=== PATIENT | male | born 1955 | race Caucasian/White ===

== ENCOUNTER 2017-06-17 11:36 | Emergency (ER) | payer MEDICARE, SELFPAY ==
[~2017-06-17 11:36] MED LIST: ISOVUE-370 76%-LOCM 1 ML ONE
--- NOTE | 2017-06-17 12:20 | RAD ---
CHEST ONE VIEW: Comparison: 10-30-13 History: Chest pain, shortness of breath. Patient underwent dialysis yesterday. FINDINGS: Normal cardiac silhouette. The pulmonary vessels and hilum are normal. Blunting of the left costophre clarice angle, unchanged. Right costophrenic angle is clear. Chronic change in the lung parenchyma. No ma sses or consolidation. No pneumothorax or osseous abnormality. IMPRESSION: Chronic changes. No acute cardiopulmonary process. POS: [facility]
[2017-06-17 12:28] LABS: #Basophils 0.1 thou/uL (0.0-0.2); #Eosinphils 0.3 thou/uL (0.0-0.7); #Monocytes 0.4 thou/uL (0.11-0.59); %Basophils 0.9 % (0.0-1.0); %Eosinophils 4.9 % (0.0-10.0); %Lymphocytes 35.1 % (21.0-51.0); %Monocytes 7.6 % (0.0-10.0); %Neutrophils 51.6 % (42.0-75.0); Band 3 % (5-11); Eosinophils 1 % (0-10); Hemoglobin 16.7 g/dL (14.0-18.0); Lymphocytes 41 % (21-51); MDiff Complete? YES; Macrocytosis SLIGHT = 6-15 cells (100X) (0-5/hpf); Mean Corpuscular HGB CONC 33.7 g/dL (32.0-36.0); Mean Corpuscular Hemoglobin 37.6 pg (27.0-31.0); Mean Platelet Volume 7.9 fL (7.4-10.4); Monocytes 9 % (0-10); Neutrophil 45 % (42-75); PLT Morphology Comment Appears Decreased; Platelet Count 72 thou/uL (130-400); RBC Distribution Width 12.1 % (11.5-14.5); Red Blood Cell (RBC) Count 4.43 mill/uL (4.70-6.10); White Blood Cell (WBC) Count 5.7 thou/uL (4.8-10.8)
[2017-06-17 12:39] LABS: ALT (SGPT) 30 U/L (8-55); AST (SGOT) 118 U/L (5-34); Albumin 3.7 g/dL (3.4-4.8); Alkaline Phosphatase 92 U/L (40-150); Anion Gap 17 mmol/L (10-20); BUN (Urea Nitrogen) 6 mg/dL (8.4-25.7); Bilirubin, Total 1.7 mg/dL (0.2-1.2); CK (CPK) 671 U/L (30-200); Calc. Creatinine Clearance 0 mL/min (70-130); Calcium 8.9 mg/dL (7.8-10.44); Carbon Dioxide 22 mmol/L (23-31); Chloride 108 mmol/L (98-107); Estimated GFR-MDRD Greater than 90; Globulin 4.4 g/dL (2.4-3.5); Glucose 121 mg/dL (80-115); Lipase 41 U/L (8-78); Magnesium 2.1 mg/dL (1.6-2.6); Protein, Total 8.1 g/dL (5.8-8.1); Sodium 143 mmol/L (136-145)
[2017-06-17] MEDS ORDERED: Pantoprazole 40 MG VIAL ONE (13:29)
[2017-06-17] MEDS ORDERED: Ondansetron HCl/PF 4 MG/2 ML Vial ONE (13:29)
--- NOTE | 2017-06-17 14:20 | CT ---
CT ANGIOGRAM THORAX WITH IV CONTRAST AND 3D RECONSTRUCTIONS: Date: 06-17-17 History: Shortness of breath and chest pain for the past month. FINDINGS: The lungs are clear bilaterally aside from minimal bibasilar atelectasis versus scarring. Thoracic ao rta is normal in caliber without evidence of an aortic dissection. There is suboptimal timing of the contrast bullous limiting the degree of opacification of the pulmonary arteries. While no large filli ng defect is seen within the central or proximal segmental pulmonary arteries, filling defects in the more distal segmental and subsegmental pulmonary arteries are difficult to entirely exclude. Mediastinal structures have a normal CT appearance. There is diminished attenuation of the liver related to diffuse fatty infiltration. There is a rounde d focal areas of enhancement seen in the lateral segment left hepatic lobe, also seen on prior study in 2012 and unchanged. This probably represents a small vascular type malformation given stability ov er this period of time. IMPRESSION: 1. Suboptimal calcification of pulmonary arteries due to timing of the contrast bolus, and while no l arge filling defect is seen in the central or segmental pulmonary arteries, smaller filling defects w ithin the distal subsegmental pulmonary arteries or involving the subsegmental pulmonary arteries wou ld be difficult to entirely exclude. 2. Thoracic aorta is normal in caliber without evidence of an aortic dissection. 3. Diffuse fatty infiltration of the liver. POS: [facility]
== END 2017-06-17 14:14 | disposition home or self-care (01) ==
LOC: ERS 11:36
DX: R07.9 Chest pain, unspecified (principal); R19.7 Diarrhea, unspecified; R11.2 Nausea with vomiting, unspecified; I10 Essential (primary) hypertension; G89.29 Other chronic pain; M19.90 Unspecified osteoarthritis, unspecified site; F20.9 Schizophrenia, unspecified; F41.9 Anxiety disorder, unspecified; F32.9 Major depressive disorder, single episode, unspecified
CPT/HCPCS: 71045; 71275; 80053; 82274; 82550; 83630; 83690; 83735; 83880; 85025; 85379; 87045; 87046; 87324; 87328; 87329; 87449; 87899; 93005; 96374; 96375; C9113; J2405

== ENCOUNTER 2017-07-14 13:11 | Emergency (ER) | payer MEDICARE, SELFPAY ==
[2017-07-14 14:05] LABS: #Basophils 0.1 thou/uL (0.0-0.2); #Eosinphils 0.2 thou/uL (0.0-0.7); #Lymphocytes 1.6 thou/uL (1.20-3.40); #Monocytes 0.5 thou/uL (0.11-0.59); #Neutrophils 3.3 thou/uL (1.40-6.50); %Basophils 1.3 % (0.0-1.0); %Eosinophils 2.8 % (0.0-10.0); %Lymphocytes 28.1 % (21.0-51.0); %Monocytes 9.5 % (0.0-10.0); %Neutrophils 58.4 % (42.0-75.0); Hemoglobin 15.4 g/dL (14.0-18.0); Mean Corpuscular Hemoglobin 36.2 pg (27.0-31.0); Mean Platelet Volume 8.3 fL (7.4-10.4); Platelet Count 72 thou/uL (130-400); RBC Distribution Width 12.5 % (11.5-14.5); Red Blood Cell (RBC) Count 4.25 mill/uL (4.70-6.10); White Blood Cell (WBC) Count 5.6 thou/uL (4.8-10.8)
--- NOTE | 2017-07-14 14:20 | RAD ---
2 VIEWS CHEST: Date: 07/14/17 COMPARISON: 06/17/17. HISTORY: Cough with shortness of breath. FINDINGS: There is a questionable new hazy area of increased density in the right lung base versus artifact. Th ere is asymmetric linear density in the medial left base and the left costophrenic angle with bluntin g of left costophrenic angle suggesting small volume left pleural fluid. No lobar consolidation or al veolar edema is seen. IMPRESSION: 1. Increased linear density noted in the left lung base which could signify infiltrate or volume los s with possible small volume associated pleural fluid. 2. Questionable hazy new density in the right lung base. Recommend follow-up PA and lateral imaging following treatment to document resolution. POS: [facility]
[2017-07-14 14:21] LABS: ALT (SGPT) 18 U/L (8-55); AST (SGOT) 102 U/L (5-34); Albumin 3.4 g/dL (3.4-4.8); Alkaline Phosphatase 114 U/L (40-150); Anion Gap 12 mmol/L (10-20); BUN (Urea Nitrogen) 7 mg/dL (8.4-25.7); Bilirubin, Total 1.6 mg/dL (0.2-1.2); Calc. Creatinine Clearance 0 mL/min (70-130); Calcium 8.6 mg/dL (7.8-10.44); Carbon Dioxide 24 mmol/L (23-31); Chloride 107 mmol/L (98-107); Estimated GFR-MDRD Greater than 90; Globulin 4.5 g/dL (2.4-3.5); Glucose 123 mg/dL (80-115); Potassium 3.9 mmol/L (3.5-5.1); Protein, Total 7.9 g/dL (5.8-8.1); Sodium 139 mmol/L (136-145)
[2017-07-14 15:53] LABS: Acetaminophen Less than 6.0 mcg/mL (10.0-30.0); Alcohol 270 mg/dL (Less than 10); Salicylate Less than 8.0 mg/dL (15.0-30.0)
[2017-07-14 15:58] LABS: CKMB 2.7 ng/mL (0-6.6); Troponin I 0.019 ng/mL (< 0.028)
[2017-07-14] MEDS ORDERED: Piperacillin/Tazobactam 2.25 GM in Sodium Chloride 0.9% 100 ML IVPB SCH (16:15)
[2017-07-14] MEDS ORDERED: clonazePAM 1 MG TAB ONE (17:07)
[2017-07-14] MEDS ORDERED: Azithromycin 250 MG TAB ONE (17:23)
--- NOTE | 2017-07-14 21:33 | PDOC.EVN ---
Attending Addendum - Attending Addendum I personally evaluated the patient and discussed the management with Dr. Morejon I agree with the History, Examination, Assessment and Plan documented above with any addition or exceptions noted below. 61 yo WM seen in ER with c/o I need my clonazepam pills. Patient endorses recent Viral illness and chest pain. Patient brought to ER via PV by friend in ER notable blood alcohol level 270. CXR with questionable patchy infiltrate right and left lung bases. PMHX patient followed by [facility] on RX klonopin,ambien and pristiq per patient. Chronic LBP and history of hypertension . Exam T 98.8 HR 100 BP 140/87 RR 18 02 Sat 95% RA alert appear intoxicated. Head AT/NC neck supple Lungs mild wheezes noted Heart NSR abdomen proturburent and tender to epigatrium. EKG no acute changes noted Lab WBC 5,600 Hgb 15.4 HCT 46.5 PLTS 72, 000 MCV 110 ETOH 270 Bili 1.6 AST 102 CK 498 troponin 0.019 Assessment acute alcohol intoxication,suspect chronic alcohol abuse with macrocytosis, epigastric abdominal and chest pain concern pancreatitis questionale basilar infiltrate, lab concern chronic liver disease( thrombocytopenia, elevated bilirubin and AST)will need further evaluation. IV hydration observation further evaluation check lipase initial EKG and troponin negative.
--- NOTE | 2017-07-15 01:21 | HP-2 ---
CODE STATUS: The patient is FULL CODE as he is acutely intoxicated and not able to make any medical decisions at this time. PRIMARY CARE PHYSICIAN: [facility] call. The patient does not have a primary care physician. ATTENDING: Otf Meng MD RESIDENT: Winsome Diaz D.O. CHIEF COMPLAINT: The patient presents with a chief complaint of feeling unwell and requesting clonazepam for his anxiety. HISTORY OF PRESENT ILLNESS: This is a 61-year-old male with past medical history of alcohol abuse, polysubstance abuse, chronic thrombocytopenia and chronic low back pain previously on chronic opiates that presents with a generalized unwell feeling. He also stated that he has anxiety and is in need of his clonazepam at this moment. During the interview, he asked for it on several occasions. The patient is an unreliable historian due to the fact that he is acutely intoxicated. He claims that he has not had alcohol within the last year; however, his alcohol level was greater than 270. He also denied any tobacco abuse. The patient did endorse past history of polysubstance abuse, but denied any drug use at this time. The patient did endorse chest pain over the past couple of days, which is worse with taking a deep breath. He does state that it occasionally hurts to touch as well. He also endorses some mild shortness of breath. He was given azithromycin and Zosyn in the emergency department for presumed aspiration pneumonia. PAST MEDICAL HISTORY: 1. The patient had a stress test done in 2013, which was negative. 2. Chronic low back pain on chronic opiates. 3. Hypertension. 4. Depression. 5. Anxiety. 6. History of chronic kidney disease stage 2. 7. Polysubstance abuse. 8. History of elevated liver enzymes. 9. Chronic thrombocytopenia. PAST SURGICAL HISTORY: None. ALLERGIES: No known drug allergies. MEDICATIONS: We are unable to verify patient's medications at this time. He did report that he was on Ambien 2 mg at bedtime; however, this does not come in 2 mg, so is uncertain whether or not he is on the 5 mg at night. Additionally, he stated that he was on clonazepam 4 mg q.i.d. and Pristiq 100 mg daily. These medications need to be verified through [facility], which is currently closed at this time. We will update the medication list as we get this information. FAMILY HISTORY: Noncontributory. SOCIAL HISTORY: The patient denies tobacco or alcohol use. He does endorse past history of drug use, but denies any drug use at this time. The patient does state that he sees [facility]. REVIEW OF SYSTEMS: A 12-point review of systems was performed and all were negative except as listed in HPI and as indicated below. The patient does endorse some orthopnea and epigastric abdominal pain. He complained of low back pain and generalized weakness. He was very adamant about being anxious and having depression. He did state that when he gets anxious his depression gets worse. Of note, this review of systems is also not 100% reliable as patient is acutely intoxicated. PHYSICAL EXAMINATION: VITAL SIGNS: Blood pressure 140/87, pulse 100, respiratory rate 18, T-max 98.8 , pulse ox 95% on room air. Current weight 108.86 kilograms. GENERAL: Alert, oriented x3, no acute distress. Well-developed, well-nourished , obese patient is acutely intoxicated and his history is not reliable. It is difficult to ascertain when he is telling the truth. EYES: Pupils equally round and reactive to light and accommodation. Extraocular muscles intact. Conjunctivae are erythematous. ENT: Tympanic membranes pearly reeves without bulging or erythema. There is minimal brown cerumen, nasal mucosa within normal limits, oropharynx within normal limits. NECK: Supple, no lymphadenopathy or thyromegaly. CARDIOVASCULAR: Regular rate and rhythm. No murmur, no gallops. Radial pulses 2+, pedal pulses 2+. RESPIRATORY: Normal effort. There is some expiratory wheezing, worse in the left upper lobe. No retractions noted on exam. SKIN: Warm and dry. No cyanosis. No lesions. ABDOMEN: Soft, mildly tender to palpation in the epigastric region. There is some evident distention. EXTREMITIES: No clubbing or cyanosis. No edema. MUSCULOSKELETAL: Structure within normal limit. Tone within normal limit. Muscle strength 5/5. NEUROLOGIC: No focal deficits. PSYCHIATRIC: The patient appears acutely intoxicated. LABORATORY DATA: 1. CBC reveals white blood cell count 5.6, hemoglobin 15.4, hematocrit 46.5, platelets 77, and MCV of 110. 2. CMP reveals sodium 139, potassium 3.9, chloride 107, bicarbonate 24, BUN 7, creatinine 0.079, glucose 123, calcium 8.6, protein 7.9, albumin 3.4, alkaline phosphatase 114, AST 102, ALT 18, bilirubin 1.6. 3. CK 498. 4. CK-MB 27, troponin 0.019. 5. Acetaminophen and salicylate acid levels are negative. 6. BNP 30.7. 7. Alcohol level 270. 8. Chest x-ray showed increased linear density noted in the left lung base, which could signify infiltrate or volume loss with possible small volume associated pleural effusion. Additionally, there is a questionable hazy, increased density in the right lung base at this time. ASSESSMENT AND PLAN: This is a 61-year-old male with past medical history of polysubstance abuse who presents with generalized malaise and chest pain. 1. Multifocal pneumonia, likely secondary to aspiration from acute alcohol intoxication. The patient was admitted to the medical unit. He is being treated with Zosyn for anaerobic coverage due to aspiration. We will start patient on DuoNebs p.r.n. for wheezing and shortness of breath. The patient did have recent flu; however, this is not documented anywhere and his history is unreliable at this time. Thus, we will monitor the patient for improvement in symptoms and consider adding vancomycin if symptoms are worsening. Procalcitonin is pending at this time. The patient will have continuous oxygen monitoring and we will increase supplement with O2 if sats are below 92%. 2. Acute alcohol intoxication. Alcohol level was 270. We will start patient on ASE protocol and GIULIA medications with the exception of Valium. Ammonia level is pending at this time. 3. Epigastric pain. This may be secondary to gastroesophageal reflux disease. The patient was started on Protonix. Due to the patient's acute alcohol intoxication, this may also be secondary to pancreatitis. The lipase was ordered. The patient's bilirubin was slightly elevated at 1.6. A direct bilirubin is pending at this time. Of note, AST and ALT are within normal limits. 4. Chronic thrombocytopenia. Platelets are 77. We will hold Lovenox and repeat a.m. CBC to ensure that platelets are staying stable. 5. Anxiety until able to verify home medications. We will only start patient on 0.5 mg of clonazepam b.i.d. 6. Polysubstance abuse. The UDS is pending at this time. 7. Deep venous thrombosis prophylaxis, sequential compression devices. 8. Gastrointestinal prophylaxis, Protonix. DISPOSITION AND LENGTH OF HOSPITAL STAY: 2 days. Symptomatic medications will be provided. History and physical exam as well as management discussed with Dr. Meng. SELIN
== END 2017-07-14 19:24 | disposition left against medical advice (07) ==
LOC: ERS 13:11
DX: J18.9 Pneumonia, unspecified organism (principal); F10.129 Alcohol abuse with intoxication, unspecified; F31.9 Bipolar disorder, unspecified; F20.9 Schizophrenia, unspecified; F41.9 Anxiety disorder, unspecified; I10 Essential (primary) hypertension; Z79.899 Other long term (current) drug therapy
CPT/HCPCS: 36415; 71046; 80053; 80307; 82550; 82553; 83880; 84484; 85025; 87040; 93005; 96365; J2543; J7050

== ENCOUNTER 2017-08-21 13:56 | Inpatient (IN) | payer MEDICARE ==
[2017-08-21 14:43] LABS: #Basophils 0.1 thou/uL (0.0-0.2); #Eosinphils 0.1 thou/uL (0.0-0.7); #Lymphocytes 1.3 thou/uL (1.20-3.40); #Monocytes 0.3 thou/uL (0.11-0.59); #Neutrophils 1.7 thou/uL (1.40-6.50); %Basophils 2.3 % (0.0-1.0); %Eosinophils 3.8 % (0.0-10.0); %Lymphocytes 36.7 % (21.0-51.0); %Monocytes 7.7 % (0.0-10.0); %Neutrophils 49.4 % (42.0-75.0); Hemoglobin 11.4 g/dL (14.0-18.0); Mean Corpuscular HGB CONC 31.1 g/dL (32.0-36.0); Mean Corpuscular Hemoglobin 30.9 pg (27.0-31.0); Mean Corpuscular Volume 99.4 fl (80.0-94.0); Mean Platelet Volume 7.7 fL (7.4-10.4); Platelet Count 74 thou/uL (130-400); RBC Distribution Width 15.2 % (11.5-14.5); White Blood Cell (WBC) Count 3.5 thou/uL (4.8-10.8)
[2017-08-21 14:49] LABS: INR-International Normal Ratio 1.8; PTT 43.9 SEC (22.9-36.1); Prothrombin Time 21.2 SEC (12.0-14.7)
[2017-08-21 15:03] LABS: ALT (SGPT) 26 U/L (8-55); AST (SGOT) 103 U/L (5-34); Albumin 2.9 g/dL (3.4-4.8); Alkaline Phosphatase 76 U/L (40-150); Anion Gap 13 mmol/L (10-20); BUN (Urea Nitrogen) 9 mg/dL (8.4-25.7); Bilirubin, Total 2.2 mg/dL (0.2-1.2); CK (CPK) 373 U/L (30-200); Calc. Creatinine Clearance 0 mL/min (70-130); Calcium 7.9 mg/dL (7.8-10.44); Carbon Dioxide 23 mmol/L (23-31); Chloride 108 mmol/L (98-107); Estimated GFR-MDRD Greater than 90; Globulin 4.1 g/dL (2.4-3.5); Glucose 114 mg/dL (80-115); Lipase 32 U/L (8-78); Potassium 4.4 mmol/L (3.5-5.1); Sodium 140 mmol/L (136-145)
[2017-08-21 15:07] LABS: CKMB 2.5 ng/mL (0-6.6); Troponin I Less than 0.010 ng/mL (< 0.028)
[2017-08-21 15:11] LABS: Acetaminophen Less than 6.0 mcg/mL (10.0-30.0); Alcohol 210 mg/dL (Less than 10); Salicylate Less than 8.0 mg/dL (15.0-30.0)
--- NOTE | 2017-08-21 15:14 | RAD ---
PORTABLE UPRIGHT CHEST: Date: 08/21/17 PROVIDED CLINICAL HISTORY: Dyspnea. FINDINGS: Comparison with 07/14/17. Cardiac silhouette is unchanged in appearance. Linear and parenchymal opacities suggesting scarring o r volume loss involve each parahilar region. Lungs appear otherwise clear. No pleural fluid or pneumo thorax apparent. Stable blunting of left costophrenic angle. IMPRESSION: No evidence for an acute cardiopulmonary process. POS: [facility]
[2017-08-21 15:50] LABS: HBCM Index 0.18 S/CO (0-0.79); HBSAg Index 0.22 S/CO (0-0.99); Hep A IgM AB Non-Reactive (NonReactive); Hep A IgM S/CO 0.12 S/CO (0-0.79); Hep B Surf Ag Non-Reactive S/CO (NonReactive); Hepatitis B Core IGM Abs Non-Reactive (NonReactive)
[2017-08-21] MEDS ORDERED: Ondansetron ODT 4 MG TAB PO PRN (16:49)
[2017-08-21] MEDS ORDERED: Diazepam 5 MG TAB PO PRN (16:52)
[2017-08-21 16:54] LABS: Hep C IgG Ab Reflex HepC Qnt (NonReactive); Hep C Index 1.46 S/CO (0-0.79)
[2017-08-21] MEDS ORDERED: Lorazepam 2 MG/ML VIAL SLOW IVP PRN (16:59)
[2017-08-21] MEDS ORDERED: Furosemide 40 MG/4 ML VIAL SLOW IVP SCH (17:00)
[2017-08-21] MEDS ORDERED: Diazepam 5 MG TAB PO SCH (17:00)
[2017-08-21] MEDS ORDERED: Thiamine HCl 200 MG/2 ML VIAL IM SCH (17:00)
--- NOTE | 2017-08-21 17:17 | PDOC.FPRHP ---
- History of Present Illness Chief Complaint: ascites History of Present Illness: Patient comes in with reported 2 wks of worsening ascites. The patient's breath smells of alcohol and he is a poor historian. He states he feels pressure in his belly. He cannot rank the pain out of ten. He states the pain is diffuse and radiates up to his chest. He is not in distress. He states he has had increasing shortness of breath as his belly has gotten bigger. He states he only drinks 2-3 times a week, a few bloody tony. He states the last time he drank was last night or the night before but he does not remember. - Allergies/Adverse Reactions Allergies Allergy/AdvReac Type Severity Reaction Status Date / Time No Known Drug Allergies Allergy Verified 10/30/13 20:39 - Home Medications Medication Instructions Recorded Confirmed Type Desvenlafaxine Succinate [Pristiq] 100 mg PO DAILY 01/11/14 08/21/17 History Zolpidem Tartrate [Ambien] 10 mg PO HS 01/11/14 08/21/17 History clonazePAM [Klonopin] 2 mg PO BID 08/21/17 08/21/17 History - History PMHx: anxiety, depression PSHx: patient denies surgeries FHx:non-contributory Social: states he drinks only 2-3 nights a week, denies tobacco, says he used cocaine when he was younger - Review of Systems ROS unobtainable: due to mental status (patient is poor historian) General: denies: fever/chills, weight/appetite/sleep changes Eyes: denies: eye pain, vision changes ENT: denies: nasal congestion, rhinorrhea Respiratory: reports: shortness of breath. denies: cough Cardiovascular: reports: edema. denies: chest pain, palpitation, orthopnea Gastrointestinal: denies: nausea, vomiting, diarrhea Genitourinary: denies: dysuria, polyuria Skin: denies: rashes, itching Musculoskeletal: denies: pain, swelling Neurological: denies: numbness, weakness Psychological: reports: anxiety, depression - Vital signs BP: [122/87] HR: [92] RR: [20] Tmax: [98.5] Pox: [92]% on [4L (prongs out of nose...)] - Physical Exam Constitutional: NAD, awake, alert and oriented HEENT: normocephalic and atraumatic, PERRLA, MMM Neck: supple, FROM Heart: RRR, normal S1/S2 Lungs: good air movement -Lungs: mild crackles at the bases bilaterally -Abdomen: markedly distended, fluid shift, moderately tender to palpation Musculoskeletal: normal structure, ROM grossly normal Neurological: no focal deficit, normal sensation -Neurological: mild tremors Skin: no rash/lesions, capillary refill <2 seconds -Heme/Lymphatic: small bruises diffusely Psychiatric: normal mood and affect, good judgment and insight FMR H&P: Results - Labs Result Diagrams: 08/21/17 14:38 08/21/17 14:38 Lab results: WBC 3.5 thou/uL (4.8-10.8) L 08/21/17 14:38 Hgb 11.4 g/dL (14.0-18.0) L 08/21/17 14:38 Hct 36.8 % (42.0-52.0) L 08/21/17 14:38 MCV 99.4 fl (80.0-94.0) H 08/21/17 14:38 Plt Count 74 thou/uL (130-400) L 08/21/17 14:38 Neutrophils % 49.4 % (42.0-75.0) 08/21/17 14:38 Sodium 140 mmol/L (136-145) 08/21/17 14:38 Potassium 4.4 mmol/L (3.5-5.1) 08/21/17 14:38 Chloride 108 mmol/L (98-107) H 08/21/17 14:38 Carbon Dioxide 23 mmol/L (23-31) 08/21/17 14:38 BUN 9 mg/dL (8.4-25.7) 08/21/17 14:38 Creatinine 0.84 mg/dL (0.6-1.3) 08/21/17 14:38 Glucose 114 mg/dL (80-115) 08/21/17 14:38 Calcium 7.9 mg/dL (7.8-10.44) 08/21/17 14:38 Total Bilirubin 2.2 mg/dL (0.2-1.2) H 08/21/17 14:38 AST 103 U/L (5-34) H 08/21/17 14:38 ALT 26 U/L (8-55) 08/21/17 14:38 Alkaline Phosphatase 76 U/L (40-150) 08/21/17 14:38 Ammonia 44 umol/L (18-72) 08/21/17 14:38 Creatine Kinase 373 U/L (30-200) H 08/21/17 14:38 CK-MB (CK-2) 2.5 ng/mL (0-6.6) 08/21/17 14:19 B-Natriuretic Peptide 68.5 pg/mL (0-100) 08/21/17 14:38 Serum Total Protein 7.0 g/dL (5.8-8.1) 08/21/17 14:38 Albumin 2.9 g/dL (3.4-4.8) L 08/21/17 14:38 Lipase 32 U/L (8-78) 08/21/17 14:38 FMR H&P: A/P - Problem List (1) Cirrhosis Current Visit: Yes Status: Acute Code(s): K74.60 - UNSPECIFIED CIRRHOSIS OF LIVER (2) Alcohol abuse Current Visit: Yes Status: Acute Code(s): F10.10 - ALCOHOL ABUSE, UNCOMPLICATED (3) Ascites Current Visit: Yes Status: Acute Code(s): R18.8 - OTHER ASCITES (4) Pleural effusion associated with hepatic disorder Current Visit: Yes Status: Acute Code(s): K76.9 - LIVER DISEASE, UNSPECIFIED ; J91.8 - PLEURAL EFFUSION IN OTHER CONDITIONS CLASSIFIED ELSEWHERE - Plan # Ascites likely 2/2 to cirrhosis - bili 2.2, alb 2.9, INR 1.8, plt 77 - salicylate, tylenol negative - hepatitis panel pending - Abd US pending - plan for paracentesis - MELD 16, CPS 9 # Alcohol Abuse - alcohol level 210 - patient states last drink 1-2 days ago - ASE, Ativan b/c of cirrhosis - thiamine/folate, mag # Pleural effusion - noted on CXR - one time Lasix 40IV # Hx of drug abuse - UDS # Hx of Depression - home meds # PPx - SCDs, no pharmacologic 2/2 cirrhosis # Code - patient states DNR in ED - Will make patient full code 2/2 lack of documentation, intoxicated status FMR H&P: Upper Level - Pertinent history 61yo CM with no known pmhx aside from polysubstance & ETOH abuse presents to ED with SOB due to increasing abd distention over the last few weeks. He is a very poor historian and smells of ETOH during exam. He states he drinks on average twice per week with 2 bloody tony upon each occurrance. Thinks his last drink was 1-2 days ago, but is unsure. When asked about other symptoms, pt becomes tearful regarding his 2 kittens being home alone. - Pertinent findings PE- poor historian with poor hygiene. NAD, A&O x2. no resp distress but exp wheezes and crackles in b/l bases. Abd- profusely distended, tympanic w/ fluid wave. TTP. Trace LE edema bilaterally. stigmata of cirrhosis- spider angiomas, diffuse bruising, mild asterixis Labs- Bili- 2.2 Ammonia- 44 Plt- 74WBC- 3.5 ETOH- 210 UDS- pending INR- 1.8 CXR- fluid along pleural lines bilaterally - Plan Date/Time: 08/21/17 1714 61yo CM with pmhx etoh abuse and polysubstance abuse p/w worsening abd distention-- 1) New onset ascites r/o SBP- likely new onset cirrhosis. check Abd US & monitor liver. will perform diagnostic and therapeutic paracentesis. check hepatitis, hiv, rpr panels. monitor CBC & CMP in am. likely consult GI in am. 2) acute etoh intoxication with h/o abuse-ase protocol. avoid long-acting bzd due to likely cirrhosis and impaired metabolism. give thiamine, folate, MV. prn ativan for withdrawal symptoms. 3) h/o polysubstance abuse- check UDS. I, Tala Patten, DO, have evaluated this patient and agree with findings/plan as outlined by international affairs vice president resident. Pertinent changes/additions are listed here/ in my note. Attending Addendum - Attending Addendum Date/Time: 08/21/172029 I personally evaluated the patient and discussed the management with Dr. Mora. I agree with the History, Examination, Assessment and Plan documented above with any addition or exceptions noted below. New onset ascites, with what appears to be history of liver dysfunction by labs , with ETOH abuse and now with diagnosis of hepatitis C. Plan for diagnostic and therapeutic paracentesis. Agree with workup. Likely being diuretics.
[2017-08-21 17:29] VITALS: BMI 31.8
[2017-08-21] MEDS ORDERED: FLU VACC TS2017-18 (>65YR) 0.5 ML SYRINGE IM ONE (18:00)
[2017-08-21] MEDS ORDERED: Magnesium Chloride 64 MG TAB PO SCH (18:15)
[2017-08-21 18:50] LABS: Hep B Surf AB Non-Reactive (NonReactive)
[2017-08-21 19:16] LABS: Amphetamine Not Detected (NotDetected); Barbiturates Screen Not Detected (NotDetected); Benzodiazepine Screen Detected (NotDetected); Cocaine Metabolite Screen Not Detected (NotDetected); Medtox Control Line Valid? VALID (VALID); Medtox Reader # READER 1; Methadone Not Detected (NotDetected); Methamphetamine Not Detected (NotDetected); Opiate Screen Detected (NotDetected); Oxycodone Screen Not Detected (NotDetected); Phencyclidine (PCP) Not Detected (NotDetected); THC/Cannabinoid Screen Detected (NotDetected); Tricyclic Screen Not Detected (NotDetected)
[2017-08-21] MEDS ORDERED: Albumin 25% 25 GM/100 ML BOT IVPB SCH (19:41)
[2017-08-21 19:59] LABS: BF Color Yellow; Body Fluid Source PERITONEAL FLUID; Clarity Hazy (Clear); Tube # EDTA
[2017-08-21 20:09] LABS: BF WBC/Nonhematics Ct. - Manua 90 /cumm
[2017-08-21 20:14] LABS: BF RBC Count - Manual 560 /cumm
--- NOTE | 2017-08-21 20:31 | OP-2 ---
DATE OF PROCEDURE: 08/21/2017 PARACENTESIS PROCEDURE NOTE INDICATION: Ascites. PROCEDURE SPOOL WORKER: Dr. Prem Anna. ATTENDING PHYSICIAN: Dr. Bryon Kuhn in attendance. Ultrasound was used to jan location. CONSENT: Consent was obtained from the patient prior to the procedure. Indications, risks, and benefits were explained at length. PROCEDURE SUMMARY: A timeout was performed, forder operator hands were washed immediately prior to the procedure. I wore surgical mask, sterile gown and sterile gloves throughout the procedure. Area was cleansed and draped in the usual sterile fashion using chlorhexidine scrub. Anesthesia was achieved using 1% lidocaine. The left side of the abdomen was prepped and draped in a sterile fashion using chlorhexidine scrub. Lidocaine 1% was used to numb the skin, soft tissue, and the peritoneum. The paracentesis catheter was inserted and advanced with negative pressure until yellow colored fluid was aspirated. Approximately 60 mL of ascitic fluid was collected and then sent for laboratory analysis. The catheter was then connected to the vacutainer and 5 liters of additional ascitic fluid were drained. The catheter was removed and no leaking was noticed. A Band-Aid was placed over the puncture wound. The patient tolerated the procedure well without any immediate complications. Estimated blood loss was less than 5 mL. MTDD
[2017-08-21 20:32] LABS: BF Segmented Neutrophils 3 %; Cell Count Non Hematic 85 %; Lymphocytes 12 %
[2017-08-21] MEDS: Folic Acid 1 MG TAB PO SCH (20:44)
--- NOTE | 2017-08-21 20:49 | ULT ---
LIMITED ULTRASOUND OF THE ABDOMEN: History: Ascites. Patient states that fluid was drained an hour ago. FINDINGS/IMPRESSION: There is a moderate amount of free fluid in the abdomen consistent with residual ascites. POS: [facility]
[2017-08-21] MEDS ORDERED: Melatonin 3 MG TAB PO SCH (21:00)
[2017-08-21] MEDS ORDERED: CLONAZEPAM 2 MG PO SCH (21:20)
[2017-08-21] MEDS: Nystatin 500,000 UNITS/5 ML UDCUP SSW SCH (22:05)
[2017-08-21 23:39] LABS: HIV (1/2) Antibody/Antigen Non-Reactive (NonReactive); HIV 1/2 INDEX 0.18 S/CO (<1.00)
[2017-08-22] MEDS ORDERED: Diazepam 5 MG TAB PO PRN (04:00)
[2017-08-22 05:16] LABS: #Basophils 0.1 thou/uL (0.0-0.2); #Eosinphils 0.1 thou/uL (0.0-0.7); #Lymphocytes 1.1 thou/uL (1.20-3.40); #Monocytes 0.4 thou/uL (0.11-0.59); #Neutrophils 1.7 thou/uL (1.40-6.50); %Basophils 2.2 % (0.0-1.0); %Eosinophils 2.3 % (0.0-10.0); %Lymphocytes 33.2 % (21.0-51.0); %Monocytes 12.5 % (0.0-10.0); %Neutrophils 49.8 % (42.0-75.0); Hemoglobin 9.9 g/dL (14.0-18.0); Mean Corpuscular HGB CONC 31.5 g/dL (32.0-36.0); Mean Corpuscular Hemoglobin 31.1 pg (27.0-31.0); Mean Corpuscular Volume 98.5 fl (80.0-94.0); Mean Platelet Volume 8.3 fL (7.4-10.4); Platelet Count 65 thou/uL (130-400); RBC Distribution Width 15.2 % (11.5-14.5); White Blood Cell (WBC) Count 3.4 thou/uL (4.8-10.8)
[2017-08-22 05:34] LABS: ALT (SGPT) 21 U/L (8-55); AST (SGOT) 81 U/L (5-34); Albumin 2.7 g/dL (3.4-4.8); Alkaline Phosphatase 65 U/L (40-150); Anion Gap 12 mmol/L (10-20); BUN (Urea Nitrogen) 9 mg/dL (8.4-25.7); Bilirubin, Total 2.2 mg/dL (0.2-1.2); Calc. Creatinine Clearance 162 mL/min (70-130); Calcium 7.9 mg/dL (7.8-10.44); Carbon Dioxide 26 mmol/L (23-31); Chloride 106 mmol/L (98-107); Estimated GFR-MDRD Greater than 90; Globulin 3.4 g/dL (2.4-3.5); Glucose 92 mg/dL (80-115); Potassium 3.8 mmol/L (3.5-5.1); Protein, Total 6.1 g/dL (5.8-8.1); Sodium 140 mmol/L (136-145)
--- NOTE | 2017-08-22 06:28 | PDOC.FM ---
- Subjective Subjective: Patient is feeling much better. His chest pain and sob is resolved. He also notes that his abdominal swelling is gone. Patient was unaware of his possible Hep C infection. He also denies abdominal pain, n/v/d, fevers, chills, or cough. He states that he is not willing to stay in the hospital for very long because "he is out of his element." He has no other complaints this morning. - Objective Vital Signs & Weight: Vital Signs (12 hours) Temp Pulse Resp BP BP Pulse Ox 08/22/17 04:00 98.7 F 91 18 127/76 127/76 91 L 08/22/17 00:00 98.5 F 80 18 118/73 118/73 92 L 08/21/17 20:00 98.5 F 91 18 110/67 110/67 92 L 08/21/17 19:13 98.0 F 83 20 92 L Result Diagrams: 08/22/17 04:25 08/22/17 04:25 <Kyler Waters - Last Filed: 08/22/17 08:51> - Objective Vital Signs & Weight: Vital Signs (12 hours) Temp Pulse Resp BP BP Pulse Ox 08/22/17 08:00 98.9 F 85 20 140/80 140/80 95 08/22/17 04:00 98.7 F 91 18 127/76 127/76 91 L 08/22/17 00:00 98.5 F 80 18 118/73 118/73 92 L Weight Admit Weight 115.439 kg Weight 115.439 kg I&O: 08/21/17 08/22/17 08/23/17 06:59 06:59 06:59 Intake Total 550 Balance 550 Result Diagrams: 08/22/17 04:25 08/22/17 04:25 <Otf Meng - Last Filed: 08/22/17 11:12> Phys Exam - Physical Examination HEENT: moist MMs Neck: no nodes Respiratory: no wheezing, clear to auscultation bilateral Cardiovascular: RRR, no significant murmur Gastrointestinal: soft, non-tender, no distention, positive bowel sounds Musculoskeletal: no edema, pulses present Neurological: non-focal, normal sensation, moves all 4 limbs Lymphatic: no nodes Psychiatric: normal affect, A&O x 3 Skin: no rash <Kyler Waters - Last Filed: 08/22/17 08:51> Dx/Plan (1) Cirrhosis Code(s): K74.60 - UNSPECIFIED CIRRHOSIS OF LIVER Status: Acute (2) Alcohol abuse Code(s): F10.10 - ALCOHOL ABUSE, UNCOMPLICATED Status: Acute (3) Ascites Code(s): R18.8 - OTHER ASCITES Status: Acute (4) Pleural effusion associated with hepatic disorder Code(s): K76.9 - LIVER DISEASE, UNSPECIFIED; J91.8 - PLEURAL EFFUSION IN OTHER CONDITIONS CLASSIFIED ELSEWHERE Status: Acute (5) Anemia Code(s): D64.9 - ANEMIA, UNSPECIFIED Status: Acute (6) Thrombocytopenia Code(s): D69.6 - THROMBOCYTOPENIA, UNSPECIFIED Status: Acute - Plan Plan: 1. Ascites likely 2/2 to cirrhosis - bili 2.2, alb 2.9, INR 1.8, plt 77 - salicylate, tylenol negative - hepatitis panel: Hep C positive awaiting reflex RNA quanitity - s/p paracentesis yielding 5L - MELD 16, CPS 9 - Will need [facility] diuresis - Consult GI, appreciate recs. 2. Alcohol Abuse - alcohol level 210 - patient states last drink 1-2 days ago - ASE, Ativan b/c of cirrhosis - thiamine/folate, mag 3. Pleural effusion - noted on CXR - one time Lasix 40IV 4. Hx of drug abuse - UDS shows Opiates, Benzos, Cabbinoids - Alcohol on admission 210 5. Hx of Depression - home meds 6. Anemia - Likely secondary to Cirrhosis - Monitor CBC 7. Thrombocytopenia - Platelets this AM 63 - Monitor signs and symptoms of bleeding <Kyler Waters - Last Filed: 08/22/17 08:51> Attending Addendum - Attending Addendum Date/Time: 08/22/17 1110 I personally evaluated the patient and discussed the management with Dr. Waters I agree with the History, Examination, Assessment and Plan documented above with any addition or exceptions noted below. Patient threatening to leave addressed concerns and benefits of continued stay for further evaluation. <Otf Meng - Last Filed: 08/22/17 11:12>
[2017-08-22] MEDS ORDERED: Furosemide 40 MG TAB PO SCH (07:30)
[2017-08-22] MEDS ORDERED: Spironolactone 25 MG TAB PO SCH (08:00)
[2017-08-22 08:21] VITALS: BP 140/80; TEMP 98.9
[2017-08-22] MEDS ORDERED: Magnesium Oxide 400 MG TAB PO SCH (09:00)
[2017-08-22] MEDS ORDERED: Folic Acid 1 MG TAB PO SCH (09:00)
[2017-08-22] MEDS ORDERED: Multivitamin W/ Minerals 1 TAB PO SCH (09:00)
[2017-08-22] MEDS ORDERED: Venlafaxine HCl XR 150 MG CAP PO SCH (09:00)
[2017-08-22] MEDS: Folic Acid 1 MG TAB PO SCH (10:05)
[2017-08-22] MEDS: Nystatin 500,000 UNITS/5 ML UDCUP SSW SCH (10:06)
[2017-08-22] MEDS ORDERED: Ondansetron HCl/PF 4 MG/2 ML Vial IVP PRN (10:56)
--- NOTE | 2017-08-22 13:02 | ULT ---
ABDOMINAL ULTRASOUND: Date: 08/22/17 HISTORY: Cirrhosis of the liver. FINDINGS: The liver demonstrates a coarsely increased echogenicity consistent with hepatocellular disease. Live r measures 21 cm in length. A 1.0 cm cyst is seen in the left lobe of the liver. The spleen is enlarged, measuring 19.0 cm. There is echogenic material without shadowing in the gallb ladder consistent with sludge. No shadowing calculi seen in the gallbladder. Gallbladder wall is thic kened, measuring 7.0 mm. The common bile duct and the pancreas are not satisfactorily seen due to ove rlying bowel gas. Visualized portions of aorta and IVC are unremarkable. The right kidney is unremark able. There is free fluid seen in the upper abdomen. IMPRESSION: 1. Hepatocellular disease with hepatomegaly and left hepatic cyst. 2. Splenomegaly. 3. Gallbladder sludge. 4. Small amount of free fluid in the upper abdomen. POS: [facility]
--- NOTE | 2017-08-22 13:58 | PDOC.EVN ---
Event Note - Event Note Event Note: Patient with established history of leaving AMA. Patient was counseled during rounds benefits of staying to evaluate further and stressed severity of his condition and need to abstain from continued use of illicit drugs and alcohol. Unfortunately patient has left AMA will anticipate another ER visit. Patient aware of resources AA /NA etc
--- NOTE | 2017-08-22 20:16 | DIS-2 ---
DATE OF ADMISSION: 08/21/2017 DATE OF DISCHARGE: 08/22/2017 RESIDENT: Kyler Waters MD ADMITTING ATTENDING: Bryon Kuhn MD DISCHARGE ATTENDING: Otf Meng MD CONSULTATIONS: Gastroenterology with Dr. Kraft. PROCEDURES: The patient underwent a chest x-ray on 08/21/2017 that showed no evidence of acute cardiopulmonary process. The patient also underwent an abdominal ultrasound on 08/21/2017 that showed a moderate amount of free fluid in the abdomen consistent with residual ascites. The patient also underwent abdominal paracentesis on 08/21/2017 that yielded roughly 5 liters of ascitic fluid. The patient tolerated that procedure well without any complication and had estimated blood loss of less than 5 mL. The patient then underwent an abdominal ultrasound on 08/22/2017 that showed hepatocellular disease with hepatomegaly and left hepatic cyst, splenomegaly, gallbladder sludge and a small amount of free fluid in the upper abdomen. PRIMARY DIAGNOSES: 1. Cirrhosis, likely secondary to alcohol abuse versus chronic hepatitis C. 2. Ascites. 3. Pleural effusion associated with hepatic disorder. 4. Anemia. 5. Thrombocytopenia. DISCHARGE MEDICATIONS: 1. Pristiq 100 mg p.o. daily. 2. Ambien 10 mg daily. 3. Klonopin 2 mg p.o. b.i.d. DISCONTINUED MEDICATIONS: None. HISTORY OF PRESENT ILLNESS AND HOSPITAL COURSE: This patient is a 61-year-old male, comes in reporting 2 weeks of worsening ascites. The patient's breathe smells of alcohol and he is a poor historian. He states he feels pressure in his belly. He cannot rate the pain out of 10. He states pain is diffuse and radiates up to his chest. He is not in distress. He states he has had increasing shortness of breath as his belly has gotten bigger. He states he is only drinks 2 to 3 times a week a few [place]. He states the last time he drank was last night or the night before, but he does not remember. During this hospitalization, the patient had obvious alcohol on his breath. His urine drug screen came back positive for urine opiates, urine benzodiazepines and urine cannabinoids. Also, his plasma alcohol level was 210. The patient had the peritoneal fluid sent for analysis, did not show any active source of infection or risk for spontaneous bacterial peritonitis, was consistent with transudative effusion. The patient also had a total bilirubin of 2.2, AST of 81, ALT of 21, albumin of 2.7 and GGT of 188. The patient's INR on day of admission was 1.8. He also had hemoglobin that ranged from 11.4 on day of admission to 9.9 a day of discharge and platelet count that ranged 74 on day of admission to 65 on day of discharge. The patient also had hepatitis C antibody that was positive and so a reflex hepatitis C quantitative measurement is pending and an HIV 1 and 2 antigen and antibody was nonreactive. This patient decided that he has anxiety over his situation was too great and that he wanted to be discharged from the hospital. The patient was counseled extensively on the detrimental risk of discharging from the hospital to his health and so he stated that he was aware of those complications that could occur and that we recommend him staying in the hospital. The patient did undergo the liver ultrasound today, but felt that he needed to be checked out after that. This patient then left against medical advice and went home. The patient was counseled extensively on alcohol cessation as well as needing to change some of his long-term pharmacological management medications because of his liver disease; however, he is resistant at that time. The patient stated he clearly understood the risks to his health and that he still would like to go home. Again, this patient left against medical advice. DISPOSITION: Guarded. DISCHARGE INSTRUCTIONS: The patient left AMA. SELIN
--- NOTE | 2017-08-24 16:17 | ULT ---
ADDENDUM: There is good flow and normal spectral waveforms in the hepatic, portal, and splenic vasculature. POS: [facility]
[2017-08-24 17:15] LABS: Hep C PCR-Quant HCV Not Detected IU/mL (.)
--- NOTE | 2017-08-27 12:37 | EKG ---
Test Reason : Blood Pressure : / mmHG Vent. Rate : 088 BPM Atrial Rate : 088 BPM P-R Int : 164 ms QRS Dur : 088 ms QT Int : 380 ms P-R-T Axes : 035 -22 012 degrees QTc Int : 459 ms Normal sinus rhythm Low voltage QRS Borderline ECG Confirmed by ANKITA CROSS, RITA ([id number]), dictionary editor SPIKE SUAREZ ([id number]) on 08/27/2017 12:36:09 PM Referred By: Confirmed By:RITA LUCIANO MD
== END 2017-08-22 12:11 | disposition left against medical advice (07) | DRG 433 ==
LOC: ERS 13:56 → T4-A 16:48
PROVIDERS: ADMIT Family Medicine; ATTEND Family Medicine
PROC: 0W9G3ZZ Drainage of Peritoneal Cavity, Percutaneous Approach (ICD-10-PCS; principal; 2017-08-21)
DX: K70.31 Alcoholic cirrhosis of liver with ascites (principal); J91.8 Pleural effusion in other conditions classified elsewhere; D69.6 Thrombocytopenia, unspecified; B18.2 Chronic viral hepatitis C; F10.20 Alcohol dependence, uncomplicated; K76.9 Liver disease, unspecified; D63.8 Anemia in other chronic diseases classified elsewhere; F11.90 Opioid use, unspecified, uncomplicated; F12.90 Cannabis use, unspecified, uncomplicated
CPT/HCPCS: 36415; 71045; 76700; 76705; 80053; 80074; 80306; 80307; 82042; 82105; 82140; 82150; 82553; 82945; 82977; 83615; 83690; 83735; 83880; 84157; 84443; 84484; 85025; 85060; 85610; 85730; 86706; 87070; 87205; 87389; 87522; 89051; 93005; J1940; J2060; J3411; J3475; J7050; P9047

== ENCOUNTER 2017-09-16 17:01 | Observation (INO) | payer MEDICARE ==
[2017-09-16 17:48] LABS: INR-International Normal Ratio 1.8; PTT 41.7 SEC (22.9-36.1)
[2017-09-16 18:00] LABS: #Basophils 0.1 thou/uL (0.0-0.2); #Eosinphils 0.1 thou/uL (0.0-0.7); #Lymphocytes 1.4 thou/uL (1.20-3.40); #Monocytes 0.5 thou/uL (0.11-0.59); #Neutrophils 1.8 thou/uL (1.40-6.50); %Basophils 1.9 % (0.0-1.0); %Eosinophils 2.5 % (0.0-10.0); %Lymphocytes 35.9 % (21.0-51.0); %Monocytes 12.5 % (0.0-10.0); %Neutrophils 47.1 % (42.0-75.0); Hemoglobin 11.4 g/dL (14.0-18.0); Mean Corpuscular HGB CONC 31.1 g/dL (32.0-36.0); Mean Corpuscular Hemoglobin 27.6 pg (27.0-31.0); Mean Corpuscular Volume 88.7 fl (80.0-94.0); Mean Platelet Volume 9.7 fL (7.4-10.4); Platelet Count 81 thou/uL (130-400); Red Blood Cell (RBC) Count 4.12 mill/uL (4.70-6.10); White Blood Cell (WBC) Count 3.9 thou/uL (4.8-10.8)
[2017-09-16 18:01] LABS: ALT (SGPT) 21 U/L (8-55); AST (SGOT) 80 U/L (5-34); Albumin 2.8 g/dL (3.4-4.8); Alkaline Phosphatase 94 U/L (40-150); Anion Gap 14 mmol/L (10-20); BUN (Urea Nitrogen) 7 mg/dL (8.4-25.7); Bilirubin, Total 2.2 mg/dL (0.2-1.2); CK (CPK) 386 U/L (30-200); Calc. Creatinine Clearance 0 mL/min (70-130); Calcium 7.9 mg/dL (7.8-10.44); Carbon Dioxide 20 mmol/L (23-31); Chloride 108 mmol/L (98-107); Estimated GFR-MDRD 85; Globulin 4.4 g/dL (2.4-3.5); Glucose 114 mg/dL (80-115); Potassium 4.2 mmol/L (3.5-5.1); Protein, Total 7.2 g/dL (5.8-8.1); Sodium 138 mmol/L (136-145)
[2017-09-16 18:03] LABS: CKMB 2.5 ng/mL (0-6.6); Troponin I Less than 0.010 ng/mL (< 0.028)
--- NOTE | 2017-09-16 18:13 | RAD ---
CHEST TWO VIEWS: 09/16/17 HISTORY: Dyspnea. Cirrhosis. COMPARISON: 08/21/17. FINDINGS: The cardiac silhouette is unremarkable. Pulmonary vasculature is slightly more engorged. Bilateral pl eural fluid includes fluid in the pleural fissures and has increased. Mediastinum is midline. No loba r consolidation or evidence of pneumothorax. IMPRESSION: Increasing pulmonary vascular congestion and small bilateral pleural effusions. POS: [facility]
[2017-09-16 20:59] LABS: Troponin I Less than 0.010 ng/mL (< 0.028)
[2017-09-16 21:08] LABS: Lactic Acid 2.4 mmol/L (0.5-2.2)
--- NOTE | 2017-09-16 21:53 | PDOC.EVN ---
Event Note - Event Note Event Note: Care transferred to FM residents. Patient was discharge by FM residents on .
[2017-09-16 22:11] VITALS: BMI 31.8
[2017-09-16 23:58] LABS: Troponin I Less than 0.010 ng/mL (< 0.028)
[2017-09-17] MEDS ORDERED: Enoxaparin Sodium 30 MG/0.3 ML SYRINGE SC SCH (00:15)
--- NOTE | 2017-09-17 00:21 | PDOC.FPRHP ---
- History of Present Illness Chief Complaint: abdominal swelling History of Present Illness: Patient states he came to the hospital because he would like repeat paracentesis , last paracentesis was on 08/21 after which he left AMA. States he woke up this morning and felt the amount of fluid in his belly was making it difficult to breath. Denies fevers, chills, sweats, nausea, vomiting, or diarrhea. No pain in the abdomen, states he occasionally feels some pressure depending on which way he is sitting. Nothing is alleviating. He states his diet is poor, a sandwich from the ED was the first real food he had eaten during the day. Patient denies chest pain. ED Course: admitted for chest pain r/o and paracentesis - Allergies/Adverse Reactions Allergies Allergy/AdvReac Type Severity Reaction Status Date / Time No Known Drug Allergies Allergy Verified 09/16/17 22:19 - Home Medications Medication Instructions Recorded Confirmed Type Desvenlafaxine Succinate [Pristiq] 100 mg PO DAILY 01/11/14 09/16/17 History Zolpidem Tartrate [Ambien] 10 mg PO HS 01/11/14 09/16/17 History clonazePAM [Klonopin] 2 mg PO QID 08/21/17 09/16/17 History - History PMHx: anxiety, depression PSHx: patient denies surgeries FHx:non-contributory Social: states he is drinking only once per day since last visit (alcohol >200), denies tobacco, says he used cocaine when he was younger - Review of Systems ROS unobtainable: due to mental status (alcohol intoxication) General: denies: fever/chills, weight/appetite/sleep changes, night sweats Eyes: denies: vision changes ENT: denies: nasal congestion, rhinorrhea Respiratory: denies: cough, congestion, shortness of breath Cardiovascular: denies: chest pain, palpitation Gastrointestinal: denies: nausea, vomiting, diarrhea, constipation Genitourinary: denies: dysuria, polyuria Skin: denies: rashes, itching Musculoskeletal: denies: pain, arthritis/arthralgias Neurological: denies: numbness, weakness Psychological: reports: anxiety, depression - Vital signs BP: 143/89 HR: 107 RR: 16 Tmax: 98.2 Pox: 92% on ra Wt: 115 - Physical Exam Constitutional: NAD, awake, alert and oriented HEENT: normocephalic and atraumatic, PERRLA, EOMI, conjunctiva clear, no scleral icterus, MMM Neck: supple, FROM Chest: no-tender to palpation Heart: RRR, normal S1/S2, no murmurs/rubs/gallops Lungs: CTAB, no respiratory distress, good air movement -Abdomen: distended, fluid wave, no tenderness Musculoskeletal: normal structure, normal tone Neurological: no focal deficit, CN II-XII intact Skin: no rash/lesions, good turgor Heme/Lymphatic: no unusual bruising or bleeding, no purpura FMR H&P: Results - Labs Result Diagrams: 09/16/17 17:23 09/16/17 17:23 Lab results: WBC 3.9 thou/uL (4.8-10.8) L 09/16/17 17:23 Hgb 11.4 g/dL (14.0-18.0) L 09/16/17 17:23 Hct 36.6 % (42.0-52.0) L 09/16/17 17:23 MCV 88.7 fl (80.0-94.0) 09/16/17 17:23 Plt Count 81 thou/uL (130-400) L 09/16/17 17:23 Neutrophils % 47.1 % (42.0-75.0) 09/16/17 17:23 Sodium 138 mmol/L (136-145) 09/16/17 17:23 Potassium 4.2 mmol/L (3.5-5.1) 09/16/17 17:23 Chloride 108 mmol/L (98-107) H 09/16/17 17:23 Carbon Dioxide 20 mmol/L (23-31) L 09/16/17 17:23 BUN 7 mg/dL (8.4-25.7) L 09/16/17 17:23 Creatinine 0.90 mg/dL (0.6-1.3) 09/16/17 17:23 Glucose 114 mg/dL (80-115) 09/16/17 17:23 Lactic Acid 2.4 mmol/L (0.5-2.2) H 09/16/17 20:23 Calcium 7.9 mg/dL (7.8-10.44) 09/16/17 17:23 Total Bilirubin 2.2 mg/dL (0.2-1.2) H 09/16/17 17:23 AST 80 U/L (5-34) H 09/16/17 17:23 ALT 21 U/L (8-55) 09/16/17 17:23 Alkaline Phosphatase 94 U/L (40-150) 09/16/17 17:23 Ammonia 58 umol/L (18-72) 09/16/17 17:23 Creatine Kinase 386 U/L (30-200) H 09/16/17 17:23 CK-MB (CK-2) 2.5 ng/mL (0-6.6) 09/16/17 17:23 Serum Total Protein 7.2 g/dL (5.8-8.1) 09/16/17 17:23 Albumin 2.8 g/dL (3.4-4.8) L 09/16/17 17:23 FMR H&P: A/P - Problem List (1) Alcohol abuse Current Visit: No Status: Acute Code(s): F10.10 - ALCOHOL ABUSE, UNCOMPLICATED (2) Ascites Current Visit: No Status: Acute Code(s): R18.8 - OTHER ASCITES (3) Chest pain Current Visit: No Status: Acute Code(s): R07.9 - CHEST PAIN, UNSPECIFIED (4) Cirrhosis Current Visit: No Status: Acute Code(s): K74.60 - UNSPECIFIED CIRRHOSIS OF LIVER - Plan # Chest pain- resolved - denies chest pain at time of examination - no st changes or t wave inversions on ekg - trop negative x2 # Ascites likely 2/2 to cirrhosis - bili 2.2, alb 2.8, INR 1.8, plt 88 - hepatitis C RNA negative, Hep B negative at last visit - peritoneal fluid SAAG 1.6 - MELD 16 - Will need senior living diuresis - Left AMA last visit before GI saw the patient - GI consult in AM - Paracentesis in AM # Possible Dehydration - strict I/Os - tachycardic - possible hepatorenal syndrome - will hold off on diuresis for now # Alcohol Abuse - alcohol level 204 - states he is only drinking 1 drink per day - ASE - if benzo indicated suggest Ativan b/c of cirrhosis - thiamine/folate # Hx of drug abuse - UDS # Anemia - likely 2/2 to cirrhosis - 9.9 at last visit 11.4 today # Thrombocytopenia - Platelets this AM 88, 77 at last visit FMR H&P: Upper Level - Pertinent history 61M arrived with complaint of needing paracentesis. He reports feeling increased pressure. His last paracentesis was 08/21. He left AMA before diuretics could be prescribed. He feels that his increased abd pressure makes it harder to breath, though he is unlabored on RA. He denies chest pain, fever, chills, sweats, nausea, vomiting or diarrhea. - Pertinent findings Vitals: 143/89, HR 107, RR 16, Tmax 98.2, 92& on RA, wt 115 kg Gen: NAD, awake, grossly alert and oriented. HEENT: Normocephlaic, PERRL, conjunctiva without juandice. MMM Neck, supple Chest: Not tender to palpation Lung: CTAB Neruo: No focal deficit. - Plan Date/Time: 09/17/17 0019 I, [Johnson Rodrigez], have evaluated this patient and agree with findings/plan as outlined by programming internship resident. Pertinent changes/additions are listed here. 1. Chest pain: Resolved, EKG and trop normal x2. Possibly discomfort due to ascities 2. Ascities 2/2 cirrhosis vs obesity vs chronic hep c - No sign of SBP, without tenderness. - Plan for salt/fluid restriction, paracentesis, possible diuresis 3. Mild dehydration - Mildly tachycardic, will obtain strict I/O, low sodium diet without diuresis for now 4. Alcohol abuse - ASE protocoal, thiamine/folate to be given 5. Hx of drug abuse - UDS 6. Anemia - Asymptomatic, will continue to monitor 7. Thrombocytopenia - Platelet is 77 day. No bleeding. Likely from liver damage.
[2017-09-17] MEDS ORDERED: Folic Acid 1 MG TAB PO SCH ×2 (00:45→09:00)
[2017-09-17 04:09] LABS: Amphetamine Not Detected (NotDetected); Barbiturates Screen Not Detected (NotDetected); Benzodiazepine Screen Detected (NotDetected); Cocaine Metabolite Screen Not Detected (NotDetected); Medtox Control Line Valid? VALID (VALID); Medtox Reader # READER 1; Methadone Not Detected (NotDetected); Methamphetamine Not Detected (NotDetected); Opiate Screen Not Detected (NotDetected); Oxycodone Screen Not Detected (NotDetected); Phencyclidine (PCP) Not Detected (NotDetected); THC/Cannabinoid Screen Detected (NotDetected); Tricyclic Screen Not Detected (NotDetected)
[2017-09-17 05:22] LABS: #Basophils 0.1 thou/uL (0.0-0.2); #Eosinphils 0.1 thou/uL (0.0-0.7); #Lymphocytes 1.5 thou/uL (1.20-3.40); #Monocytes 0.4 thou/uL (0.11-0.59); #Neutrophils 1.6 thou/uL (1.40-6.50); %Basophils 1.8 % (0.0-1.0); %Lymphocytes 41.2 % (21.0-51.0); %Monocytes 10.5 % (0.0-10.0); %Neutrophils 43.5 % (42.0-75.0); Hemoglobin 10.3 g/dL (14.0-18.0); Mean Corpuscular HGB CONC 30.6 g/dL (32.0-36.0); Mean Corpuscular Hemoglobin 27.2 pg (27.0-31.0); Mean Platelet Volume 9.9 fL (7.4-10.4); Platelet Count 71 thou/uL (130-400); RBC Distribution Width 17.8 % (11.5-14.5); Red Blood Cell (RBC) Count 3.79 mill/uL (4.70-6.10); White Blood Cell (WBC) Count 3.7 thou/uL (4.8-10.8)
[2017-09-17 05:27] LABS: Anion Gap 11 mmol/L (10-20); BUN (Urea Nitrogen) 8 mg/dL (8.4-25.7); Calc. Creatinine Clearance 152 mL/min (70-130); Calcium 7.6 mg/dL (7.8-10.44); Carbon Dioxide 24 mmol/L (23-31); Chloride 108 mmol/L (98-107); Estimated GFR-MDRD Greater than 90; Glucose 103 mg/dL (80-115); Potassium 3.8 mmol/L (3.5-5.1); Sodium 139 mmol/L (136-145)
[2017-09-17] MEDS ORDERED: Lidocaine 1% (PF) 30 ML VIAL ONE (07:20)
[2017-09-17] MEDS ORDERED: Albumin 25% 25 GM/100 ML BOT IVPB SCH (08:25)
--- NOTE | 2017-09-17 08:56 | PDOC.EVN ---
Event Note - Event Note Event Note: INDICATION: symptomatic ascites PROCEDURE CREDIT CHARGE AUTHORIZER: Dr. Prem Mora ATTENDING PHYSICIAN: Dr. Bryon Kuhn In Attendance (Y) Ultrasound used to jan location: Y CONSENT: yes Consent was obtained from patient prior to the procedure. Indications, risks, and benefits were explained at length. PROCEDURE SUMMARY: A time-out was performed. My hands were washed immediately prior to the procedure. I wore a surgical cap, mask with protective eyewear, and sterile gloves throughout the procedure. The area was cleansed and draped in usual sterile fashion using chlorhexidine scrub. Anesthesia was achieved with 1% lidocaine. The L side of the abdomen was prepped and draped in a sterile fashion using chlorhexidine scrub. 1% lidocaine was used to numb the skin, soft tissue and peritoneum. The paracentesis catheter was inserted and advanced with negative pressure until straw colored fluid was aspirated. Approximately 60 mL of ascitic fluid was collected and sent for laboratory analysis. The catheter was then connected to the vaccutainer and 8 liters of additional ascitic fluid were drained. The catheter was removed and no leaking was noted. A bandaid was placed over the puncture wound. The patient tolerated the procedure well without any immediate complications. Estimated blood loss was <5ml. <Prem Mora - Last Filed: 09/17/17 08:54> Attending Addendum - Attending Addendum Date/Time: 09/17/17 1114 I was present and gloved for the procedure. Ultrasound used to identify deepest pocket. 8 liters. Will give albumin. No immediate complications. <Bryon Kuhn - Last Filed: 09/17/17 11:15>
[2017-09-17] MEDS ORDERED: Furosemide 20 MG TAB PO SCH ×2 (11:15→15:30)
[2017-09-17] MEDS ORDERED: Spironolactone 25 MG TAB PO SCH ×2 (11:15→15:30)
[2017-09-17 16:07] VITALS: BP 149/75; TEMP 99
[2017-09-18] MEDS ORDERED: Spironolactone 25 MG TAB PO SCH (08:00)
[2017-09-18] MEDS ORDERED: Furosemide 20 MG TAB PO SCH (09:00)
== END 2017-09-17 16:43 | disposition home or self-care (01) ==
LOC: ERS 17:01 → 2SW 21:22
PROVIDERS: ADMIT Internal Medicine; ATTEND Internal Medicine
PROC: 0W9G3ZZ Drainage of Peritoneal Cavity, Percutaneous Approach (ICD-10-PCS; principal; 2017-09-17)
DX: R18.8 Other ascites (principal); K74.60 Unspecified cirrhosis of liver; F10.10 Alcohol abuse, uncomplicated; D64.9 Anemia, unspecified; D69.6 Thrombocytopenia, unspecified; E86.0 Dehydration; Z79.899 Other long term (current) drug therapy; Y90.7 Blood alcohol level of 200-239 mg/100 ml
CPT/HCPCS: 49082; 71046; 80048; 80053; 80306; 80307; 82140; 82550; 82553; 83605; 84484 ×2; 85025 ×2; 85610; 85730; 86850; 86900; 86901; 87040; 87070; 87077; 87186; 87205; 93005; 94760; 96365; 96372; 99285; G0378; P9047; 36415; A4216; J1650; J2001; J3411; J7050

== ENCOUNTER 2017-09-19 14:23 | Emergency (ER) | payer MEDICARE, SELFPAY ==
[2017-09-19 15:18] LABS: #Basophils 0.1 thou/uL (0.0-0.2); #Eosinphils 0.1 thou/uL (0.0-0.7); #Lymphocytes 1.1 thou/uL (1.20-3.40); #Monocytes 0.4 thou/uL (0.11-0.59); #Neutrophils 2.3 thou/uL (1.40-6.50); %Basophils 1.3 % (0.0-1.0); %Eosinophils 1.9 % (0.0-10.0); %Lymphocytes 28.4 % (21.0-51.0); %Monocytes 10.2 % (0.0-10.0); %Neutrophils 58.2 % (42.0-75.0); Hemoglobin 10.8 g/dL (14.0-18.0); Mean Corpuscular HGB CONC 30.7 g/dL (32.0-36.0); Mean Corpuscular Volume 88.2 fl (80.0-94.0); Mean Platelet Volume 10.1 fL (7.4-10.4); Platelet Count 70 thou/uL (130-400); RBC Distribution Width 18.1 % (11.5-14.5); Red Blood Cell (RBC) Count 3.99 mill/uL (4.70-6.10)
[2017-09-19 15:36] LABS: ALT (SGPT) 19 U/L (8-55); AST (SGOT) 61 U/L (5-34); Albumin 2.9 g/dL (3.4-4.8); Alkaline Phosphatase 60 U/L (40-150); Anion Gap 9 mmol/L (10-20); BUN (Urea Nitrogen) 10 mg/dL (8.4-25.7); Bilirubin, Total 3.4 mg/dL (0.2-1.2); Calc. Creatinine Clearance 0 mL/min (70-130); Carbon Dioxide 24 mmol/L (23-31); Chloride 108 mmol/L (98-107); Estimated GFR-MDRD 77; Globulin 3.8 g/dL (2.4-3.5); Glucose 98 mg/dL (80-115); Potassium 3.4 mmol/L (3.5-5.1); Protein, Total 6.7 g/dL (5.8-8.1); Sodium 138 mmol/L (136-145)
[2017-09-19 15:50] LABS: CKMB 2.1 ng/mL (0-6.6); Troponin I Less than 0.010 ng/mL (< 0.028)
[2017-09-19] MEDS ORDERED: cefTRIAXone\\ROCEPHIN 2 GM VIAL ONE (16:39)
--- NOTE | 2017-11-01 12:46 | EKG ---
Test Reason : Blood Pressure : / mmHG Vent. Rate : 084 BPM Atrial Rate : 084 BPM P-R Int : 152 ms QRS Dur : 092 ms QT Int : 410 ms P-R-T Axes : 019 -30 017 degrees QTc Int : 484 ms Normal sinus rhythm Left axis deviation Low voltage QRS Prolonged QT Abnormal ECG Confirmed by WARREN CROSS, JORGE ([id number]), news copy editor SPIKE SUAREZ ([id number]) on 11/01/2017 12:45:41 PM Referred By: CRISTAL Confirmed By:JORGE KELLEY MD
== END 2017-09-19 17:12 | disposition home or self-care (01) ==
LOC: ERS 14:23
DX: K65.9 Peritonitis, unspecified (principal); I10 Essential (primary) hypertension; M19.90 Unspecified osteoarthritis, unspecified site; G89.29 Other chronic pain; F31.9 Bipolar disorder, unspecified; F20.9 Schizophrenia, unspecified; Z79.899 Other long term (current) drug therapy
CPT/HCPCS: 36415; 80053; 82553; 83605; 83880; 84484; 85025; 87040; 93005; 96374; J0696

== ENCOUNTER 2017-11-03 15:20 | Inpatient (IN) | payer MEDICARE ==
[~2017-11-03 15:20] MED LIST changes: -ISOVUE-370 76%-LOCM 1 ML ONE; +Succinylcholine Chloride 20 MG/ML 10 ml SYRINGE FS ONE
[2017-11-03 16:45] LABS: Hemoglobin 10.3 g/dL (14.0-18.0); Mean Corpuscular HGB CONC 30.4 g/dL (32.0-36.0); Mean Corpuscular Hemoglobin 27.8 pg (27.0-31.0); Mean Corpuscular Volume 91.6 fl (80.0-94.0); Mean Platelet Volume 5.5 fL (7.4-10.4); Platelet Count 62 thou/uL (130-400); RBC Distribution Width 24.8 % (11.5-14.5); Red Blood Cell (RBC) Count 3.71 mill/uL (4.70-6.10); White Blood Cell (WBC) Count 3.4 thou/uL (4.8-10.8)
[2017-11-03 16:50] LABS: INR-International Normal Ratio 2.9; PTT 39.5 SEC (22.9-36.1); Prothrombin Time 31.4 SEC (12.0-14.7)
[2017-11-03 17:04] LABS: ALT (SGPT) 51 U/L (8-55); AST (SGOT) 135 U/L (5-34); Albumin 2.2 g/dL (3.4-4.8); Alcohol Less than 10 mg/dL (Less than 10); Alkaline Phosphatase 48 U/L (40-150); Anion Gap 15 mmol/L (10-20); BUN (Urea Nitrogen) 24 mg/dL (8.4-25.7); Bilirubin, Total 11.1 mg/dL (0.2-1.2); CK (CPK) 693 U/L (30-200); Calc. Creatinine Clearance 0 mL/min (70-130); Calcium 7.7 mg/dL (7.8-10.44); Carbon Dioxide 23 mmol/L (23-31); Chloride 105 mmol/L (98-107); Estimated GFR-MDRD 75; Globulin 4.2 g/dL (2.4-3.5); Glucose 90 mg/dL (80-115); Lipase 52 U/L (8-78); Potassium 3.6 mmol/L (3.5-5.1); Protein, Total 6.4 g/dL (5.8-8.1); Sodium 139 mmol/L (136-145)
[2017-11-03 17:06] LABS: #Lymphocytes 0.7 thou/uL (1.20-3.40); #Monocytes 0.5 thou/uL (0.11-0.59); #Neutrophils 2.1 thou/uL (1.40-6.50); %Eosinophils 0.6 % (0.0-10.0); %Lymphocytes 20.7 % (21.0-51.0); %Monocytes 14.9 % (0.0-10.0); %Neutrophils 63.9 % (42.0-75.0); Anisocytosis SLIGHT = 6-15 cells (100X) (0-5/hpf); Hypochromia SLIGHT = 6-15 cells (100X) (0-5/hpf); MDiff Complete? YES; Ovalocytes SLIGHT = 2-5 cells (100X) (0-1/hpf); PLT Morphology Comment Appears Decreased; Poikilocytosis SLIGHT = 6-15 cells (100X) (0-5/hpf); Polychromasia SLIGHT = 2-3 cells (100X) (0-2/hpf); Target Cells SLIGHT = 2-5 cells (100X) (0-1/hpf)
--- NOTE | 2017-11-03 17:06 | CT ---
CT BRAIN WITHOUT CONTRAST: HISTORY: Fall, injury, and head pain. COMPARISON: 04/04/2010 FINDINGS: There is a predominantly hypodense subdural hematoma overlying the right frontal convexity, causing s ome mild underlying mass effect and right to left midline shift of 1.65 mm. No hydrocephalus is evid ent. The basilar cisterns are patent. The skull is intact. IMPRESSION: Right frontal convexity subdural hematoma with a small amount of right to left midline shift of 1.65 mm. Findings were called to Brian Villanueva at 4:38 p.m. on 11/03/2017. CODE CR POS: [facility]
[2017-11-03 17:08] LABS: CKMB 2.4 ng/mL (0-6.6); Troponin I 0.013 ng/mL (< 0.028)
[2017-11-03] MEDS ORDERED: Piperacillin/Tazobactam 3.375 GM VIAL ONE (18:27)
[2017-11-03] MEDS ORDERED: Pantoprazole 40 MG VIAL ONE (18:27)
[2017-11-03 18:37] LABS: Bilirubin Large (Negative); Blood, Urine Negative (Negative); Clarity CLOUDY (Clear); Glucose, Urine (Dipstick) Negative (Negative); Leukocyte Moderate (Negative); Nitrite Positive (Negative); Protein, Urine (Dipstick) Negative (Neg-Trace); Specific Gravity, Urine 1.029 (1.002-1.036); pH, Urine 5.5 (5.0-9.0)
[2017-11-03 18:38] LABS: Hyaline Casts/LPF 4-6 HYALINE CAST LPF (0-3 Hyaline); Pathc Cast-AUWi Flag 1.45 (0-2.49); Squamous Epithelial None Seen HPF (0-3)
[2017-11-03 18:49] LABS: Bacteria/HPF Rare-Few HPF (None Seen); RBC/HPF 0-3 HPF (0-3)
[2017-11-03 19:03] LABS: Mean Corpuscular HGB CONC 30.7 g/dL (32.0-36.0); Mean Corpuscular Hemoglobin 28.3 pg (27.0-31.0); Mean Platelet Volume 7.4 fL (7.4-10.4); Platelet Count 62 thou/uL (130-400); RBC Distribution Width 24.8 % (11.5-14.5); Red Blood Cell (RBC) Count 3.17 mill/uL (4.70-6.10); White Blood Cell (WBC) Count 3.2 thou/uL (4.8-10.8)
[2017-11-03 19:25] LABS: #Lymphocytes 0.9 thou/uL (1.20-3.40); #Monocytes 0.5 thou/uL (0.11-0.59); #Neutrophils 1.9 thou/uL (1.40-6.50); %Basophils 0.4 % (0.0-1.0); %Eosinophils 0.7 % (0.0-10.0); %Lymphocytes 27.2 % (21.0-51.0); %Neutrophils 57.7 % (42.0-75.0); Anisocytosis SLIGHT = 6-15 cells (100X) (0-5/hpf); Hypochromia SLIGHT = 6-15 cells (100X) (0-5/hpf); MDiff Complete? YES; PLT Morphology Comment Appears Decreased; Target Cells SLIGHT = 2-5 cells (100X) (0-1/hpf); Tear Drops SLIGHT = 2-5 cells (100X) (0-1/hpf)
[2017-11-03] MEDS ORDERED: Mag-Al 1200 mg/1200 mg/30 ML UDCUP PO PRN (19:25)
[2017-11-03] MEDS ORDERED: Calcium Carbonate 500 MG ChewTAB PO PRN (19:25)
[2017-11-03] MEDS ORDERED: Bisacodyl 5 MG TAB PO PRN (19:25)
[2017-11-03] MEDS ORDERED: Senokot 8.6 MG TAB PO PRN (19:25)
[2017-11-03] MEDS ORDERED: Ondansetron HCl/PF 4 MG/2 ML Vial IVP PRN ×4 (19:25→20:53)
[2017-11-03] MEDS ORDERED: Benzonatate 100 MG CAP PO PRN (19:27)
[2017-11-03] MEDS ORDERED: hydrALAZINE 20 MG/ML VIAL SLOW IVP PRN (19:27)
[2017-11-03] MEDS ORDERED: Loratadine 10 MG TAB PO PRN (19:27)
[2017-11-03] MEDS ORDERED: Lorazepam 2 MG/ML VIAL SLOW IVP PRN (19:27)
[2017-11-03] MEDS ORDERED: Diabetic Tussin 200 MG/10 ML UDCUP PO PRN (19:27)
[2017-11-03] MEDS ORDERED: Nitroglycerin 0.4 MG TAB (25 Tab Bottle) SL PRN (19:27)
[2017-11-03] MEDS ORDERED: Pantoprazole 80 MG in Sodium Chloride 0.9% 100 ML IVPB SCH (19:30)
[2017-11-03] MEDS ORDERED: Octreotide Acetate 50 MCG/ML AMP SLOW IVP SCH (19:30)
[2017-11-03] MEDS ORDERED: Octreotide Acetate 1,250 MCG in Sodium Chloride 0.9% 250 ML 250 ML IVPB SCH (19:30)
[2017-11-03] MEDS ORDERED: cefTRIAXone\\ROCEPHIN 1 GM in Sodium Chloride 0.9% 100 ML IVPB SCH (20:00)
[2017-11-03] MEDS ORDERED: Promethazine HCl 25 MG/ML VIAL IM PRN (20:53)
[2017-11-03] MEDS ORDERED: Promethazine HCl 25 MG/ML VIAL SLOW IVP PRN (20:53)
[2017-11-03] MEDS ORDERED: Sodium Chloride 0.9% 1,000 ML IV SCH (22:15)
[2017-11-03 23:24] LABS: Lactic Acid 2.2 mmol/L (0.5-2.2)
--- NOTE | 2017-11-03 23:51 | CON ---
DATE OF CONSULTATION: 11/03/2017 HISTORY OF PRESENT ILLNESS: The patient is a 62-year-old male who was in his normal state of health until few days prior to admission when he reports he could not get up to move. According t o EMS personnel, the patient was on the couch for several days and was unable to move. He was confus ed and disoriented. He reports he drinks 2 ounces of alcohol per day. He has a history of hepatitis C. PAST MEDICAL HISTORY: Hypertension, chronic back pain. PAST SURGICAL HISTORY: None. SOCIAL HISTORY: He does drink 2 ounces per day as previously mentioned. He does use drugs as well. He does not smoke. FAMILY HISTORY: Unobtainable. REVIEW OF SYSTEMS: Unobtainable. MEDICATIONS: He denies. ALLERGIES: No known allergies. PHYSICAL EXAMINATION: GENERAL: Shows an icteric, jaundiced white male in no acute distress. VITAL SIGNS: Stable. He is afebrile. HEENT: Significant for scleral icterus. NECK: Supple. CHEST: Clear. CARDIOVASCULAR: Regular rate and rhythm. ABDOMEN: Distended, nontender. He has multiple skin sores over his abdomen. RECTAL: Deferred. EXTREMITIES: Showed some pitting edema on the right leg, not on the left leg. LABORATORY DATA: Shows a white blood cell count of 3.2, hemoglobin 9, hematocrit 29.1, platelet coun t 62,000. PT is 31.4 with an INR of 2.9. Previous paracentesis from August of this year showed 90 wb c's. Toxicology from September showed benzodiazepines and cannabinoids to be detected. Plasma alcohol i n September was 204. Serology is positive for hepatitis C antibody, but Hepatitis C RNA is not detected. CT showed a right frontal convexity subdural hematoma. Abdominal ultrasound from August showed hepa tocellular disease with hepatomegaly and left hepatic cyst, splenomegaly, gallbladder sludge, small a mount of fluid in the upper abdomen. Previous alpha fetoprotein from August was 4.4. Chemistries sig nificant for total bilirubin 11.1, lactic acid 2.5, AST 135, ALT 151, CK of 693, albumin of 2.2, ammo charley of 41, lipase of 52. ASSESSMENT: 1. Alcoholic cirrhosis. 2. Alcoholic hepatitis. 3. Gastrointestinal bleed - suspect esophageal variceal hemorrhage. 4. Subdural hematoma. 5. Abdominal wall cellulitis and multiple abdominal wall wounds. 6. Ascites. RECOMMENDATIONS: 1. Octreotide drip. 2. Emergent EGD. 3. Vitamin K. 4. These results will dictate further management.
[2017-11-04] MEDS: Piperacillin/Tazobactam 3.375 GM in Sodium Chloride 0.9% 100 ML IVPB SCH ×4 (00:31→17:24)
[2017-11-04 00:36] LABS: Hemoglobin 8.8 g/dL (14.0-18.0)
--- NOTE | 2017-11-04 00:51 | OP ---
DATE OF PROCEDURE: 11/03/2017 PREOPERATIVE DIAGNOSIS: Gastrointestinal bleed. DESCRIPTION OF PROCEDURE: After informed consent was obtained, the patient was placed in left latera l decubitus position. Anesthesia was administered per the Anesthesia Department. Forward-viewing en doscope was inserted into the esophagus under direct visualization with ease and passed to the second portion of the duodenum with ease. Second portion of the duodenum was normal. No blood was seen in the upper GI tract. The duodenal bulb had multiple large ulcerations, some covered with black escha r, but none with visible vessels. No active bleeding was seen. The pylorus, antrum, body, fundus, a nd cardia were normal. Retroflexion in the stomach was normal. No gastric or esophageal varices wer e appreciated. ASSESSMENT: 1. Multiple duodenal ulcers - no active bleeding or visible vessels. 2. Otherwise normal esophagogastroduodenoscopy. RECOMMENDATIONS: 1. Continue Protonix drip. 2. Serial H&H.
[2017-11-04] MEDS ORDERED: Lidocaine 5% Patch TD SCH (01:00)
[2017-11-04 03:59] LABS: INR-International Normal Ratio 2.4; Prothrombin Time 27.4 SEC (12.0-14.7)
[2017-11-04 04:12] LABS: ALT (SGPT) 38 U/L (8-55); AST (SGOT) 89 U/L (5-34); Albumin 2.1 g/dL (3.4-4.8); Alkaline Phosphatase 43 U/L (40-150); Anion Gap 8 mmol/L (10-20); BUN (Urea Nitrogen) 23 mg/dL (8.4-25.7); Bilirubin, Total 8.7 mg/dL (0.2-1.2); Calc. Creatinine Clearance 130 mL/min (70-130); Calcium 7.6 mg/dL (7.8-10.44); Carbon Dioxide 24 mmol/L (23-31); Chloride 110 mmol/L (98-107); Estimated GFR-MDRD 85; Globulin 3.3 g/dL (2.4-3.5); Glucose 89 mg/dL (80-115); Potassium 3.4 mmol/L (3.5-5.1); Protein, Total 5.4 g/dL (5.8-8.1); Sodium 139 mmol/L (136-145)
[2017-11-04 04:36] LABS: Anisocytosis SLIGHT = 6-15 cells (100X) (0-5/hpf); Band 4 % (5-11); Eosinophils 1 % (0-10); Hemoglobin 8.3 g/dL (14.0-18.0); Lymphocytes 24 % (21-51); MDiff Complete? YES; Mean Corpuscular HGB CONC 30.1 g/dL (32.0-36.0); Mean Corpuscular Hemoglobin 27.5 pg (27.0-31.0); Mean Corpuscular Volume 91.3 fl (80.0-94.0); Mean Platelet Volume 5.9 fL (7.4-10.4); Monocytes 6 % (0-10); Neutrophil 65 % (42-75); PLT Morphology Comment Appears Decreased; Platelet Count 55 thou/uL (130-400); Polychromasia SLIGHT = 2-3 cells (100X) (0-2/hpf); RBC Distribution Width 24.2 % (11.5-14.5); Red Blood Cell (RBC) Count 3.02 mill/uL (4.70-6.10); Target Cells SLIGHT = 2-5 cells (100X) (0-1/hpf); White Blood Cell (WBC) Count 2.2 thou/uL (4.8-10.8)
[2017-11-04] MEDS: Vancomycin HCl 1 GM in Premix Bag 1 BAG IVPB SCH ×2 (05:14→17:24)
--- NOTE | 2017-11-04 07:12 | CON ---
DATE OF CONSULTATION: 11/04/2017 REASON FOR CONSULTATION: Small subdural hematoma. HISTORY OF PRESENT ILLNESS: Mr. Little is a 62-year-old gentleman I met this morning in our ICU. He is unsure of how he got to the hospital. He does report that his liver disease from use of alcohol, drugs and hepatitis C. This liver disease has been known for quite some time. Recently, he has bee n having more and more difficulty managing his activities of daily living at home and has been crawli ng to and from the kitchen and unable to stand for long periods of time. He was found on his couch a t home, by report. A CT examination of the brain and the ER evaluation revealed hyperdense area of fluid over the right hemisphere and a tiny amount of some acute blood in that collection with minimal midline shift and mi nimal local mass effect. Neurosurgery was consulted because of disorientation and presence of subdur al hematoma, most of which looked chronic. Overnight, Mr. Little feels he is a little bit more oriented this morning, but still is unaware of date and year. He wonders why he is in the hospital and expresses frustration about whoever called 911. He is not feeling any particular new weakness or numbness in the extremities. Does not have any new double vision, hearing loss, or cranial nerve symptoms. [facility] PAST MEDICAL HISTORY: Significant for hypertension, back pain, hepatitis C and liver failure. PAST SURGICAL HISTORY: EGD done yesterday. No other significant surgeries that he can recall. SOCIAL HISTORY: Mr. Little does admit to having hepatitis C. He has had drug use in the past. He d rinks currently, he denies smoking. FAMILY HISTORY: Noncontributory. HOME MEDICATIONS: Clonazepam, zolpidem, spironolactone, furosemide, and Pristiq, which is venlafaxin e succinate. CURRENT MEDICATIONS IN THE HOSPITAL: Include a number of p.r.n. medications, lidocaine patch for pa in control, octreotide, pantoprazole, piperacillin/tazobactam and vancomycin. ALLERGIES: No known drug allergies. REVIEW OF SYSTEMS: Otherwise negative. PHYSICAL EXAMINATION: I am seeing Mr. Little in room B3 in our ICU. He is awake as I enter the room , he answers questions appropriately. He keeps perseverating on why he is in the hospital and who c alled 911 and he is upset about that decision. His cranial nerves seem intact. His memory is not in tact. He does not know the day, the date or the month nor the year. He knows he is a 62-year-old, blas portillo. When holding his arms still had a static posture has asterixis. Alternating rapid motions a re performed slowly, but without significant dysmetria. He has at least antigravity strength in all 4 extremities and follows commands well. Does not have any neglect. He appreciates touch sensation throughout. There is no clonus. IMAGING: I reviewed noncontrast CT imaging of the brain yesterday. There is a 6 mm fluid collection over the right hemisphere of the brain different from the scan done in 2009. Within the 6 mm fluid collection about 1 mm of it looks acute on a few slices. There is about 1-2 mm of shift of the septu m pellucidum. There is no significant local mass effect and no significant midline shift. The sulca l and gyral pattern over the convexity of the right hemisphere looks normal. These gyri are not flat tened. The sulci are not compressed. Platelet count 55,000. INR 2.4 after multiple units of FFP. IMPRESSION AND PLAN: 1. Liver failure with gross ascites and failure of a synthetic function of the liver. 2. Small subdural fluid collection, likely a chronic subdural hematoma without significant mass effe ct and no attributable neurological deficit. 3. Increased risk for surgery with low platelet count and high INR in spite of FFP therapy. I recommended to Mr. Little that we not consider surgery for his subdural hematoma. There is one dev ice in our hospital for patients with subdural hematoma in the setting of coagulopathy which could be inserted with a twist drill and put on suction, but even that carries some risk and right now I can see that he has neurological deficit referable to the small collection and it should be observed over time rather than operated. He certainly has many other medical issues that require more urgent intervention and then there is a need for discussion as to what medical care he wants in the future. He is clearly upset that somebod y brought him to the hospital. If we had access to psychiatric support, then an evaluation would be necessary, but it seems to me that he is expressing ideations that he does not want any further treat ment, wants to . The Neurosurgery Team will be available all weekend for questions. Dr. Lemos will be covering. Thank you for the consultation.
--- NOTE | 2017-11-04 12:29 | PDOC.PN ---
- Subjective Encounter Start Date: 11/04/17 Encounter Start Time: 14:30 Subjective: Patient more oriented now after constant coaching. Friend and POA in -: the room. Patient remembers many older events/people but has more -: trouble with current things. - Objective MAR Reviewed: Yes Vital Signs & Weight: Vital Signs (12 hours) Temp Pulse Pulse Pulse Resp BP BP 11/04/17 11:10 74 74 107/60 113/62 11/04/17 11:00 99.0 F 72 16 11/04/17 08:52 11/04/17 08:00 99.2 F 75 18 11/04/17 07:21 99.2 F 75 18 11/04/17 03:45 99.3 F 66 18 BP Pulse Ox Pulse Ox Pulse Ox 11/04/17 11:10 98 98 11/04/17 11:00 110/57 L 97 11/04/17 08:52 100 11/04/17 08:00 99 11/04/17 07:21 116/59 L 99 11/04/17 03:45 100/57 L 99 Weight Admit Weight 244 lb 4.8 oz Weight 244 lb 4.8 oz I&O: 11/03/17 11/04/17 11/05/17 06:59 06:59 06:59 Intake Total 1070 Output Total 300 Balance 770 Result Diagrams: 11/04/17 03:37 11/04/17 03:37 Phys Exam - Physical Examination Constitutional: NAD HEENT: moist MMs sclera icteric Respiratory: no wheezing, no rales, no rhonchi Cardiovascular: RRR, no significant murmur Gastrointestinal: soft, positive bowel sounds distended, positive fluid wave Musculoskeletal: edema present Neurological: non-focal Psychiatric: normal affect Deviation from normal: A&O x3 currently (after drilling), trouble remembering situation Dx/Plan (1) Anemia Code(s): D64.9 - ANEMIA, UNSPECIFIED Status: Acute Comment: Likley GI blood loss from ulcer disease, currently hemodynamically stable, continue Protonix (2) Cirrhosis Code(s): K74.60 - UNSPECIFIED CIRRHOSIS OF LIVER Status: Chronic Qualifiers: Hepatic cirrhosis type: alcoholic cirrhosis (3) Hepatitis C Code(s): B19.20 - UNSPECIFIED VIRAL HEPATITIS C WITHOUT HEPATIC COMA Status: Chronic (4) Alcohol abuse Code(s): F10.10 - ALCOHOL ABUSE, UNCOMPLICATED Status: Chronic (5) Altered mental status Code(s): R41.82 - ALTERED MENTAL STATUS, UNSPECIFIED Status: Acute Comment: likely chronic from alcohol abuse and cirrhosis, patient with poor memory and concentration (6) Ascites Code(s): R18.8 - OTHER ASCITES Status: Chronic (7) Thrombocytopenia Code(s): D69.6 - THROMBOCYTOPENIA, UNSPECIFIED Status: Chronic (8) Subdural hematoma Code(s): S06.5X9A - TRAUM SUBDR HEM W LOC OF UNSP DURATION, INIT Status: Chronic Comment: likely acute on chronic, no surgery per Neurosurgery as appears stable - Plan cont current plan of care, continue antibiotics, PT/OT, adoption social worker Close observation in the IMCU. * . - Discharge Day Encounter end time: 14:50
[2017-11-04] MEDS ORDERED: Lidocaine Patch Removal 1 EACH TOP SCH (13:00)
--- NOTE | 2017-11-04 14:06 | HP ---
DATE OF ADMISSION: 11/03/2017 PRIMARY CARE PHYSICIAN: None. CHIEF COMPLAINT: Family called EMS because they were worried about the patient's wellness. HISTORY OF PRESENT ILLNESS: Mr. Faust is a 62-year-old male with known history of hepatitis C, alcoh olic versus hepatitis cirrhosis, chronic back pain, and hypertension who presented to the emergency r oom as per above. History is mainly obtained by the chart review and discussion with the admitting E R physician. The patient is quite altered at this time. Though he is more awake by the time I am ex amining him, he is not able to give straight answers and is confabulating. Extensive medical records have been reviewed. He was most recently admitted to our facility last tue under [facility]. At that time, he presented to the emergency room for complaints o f worsening abdominal distention and requesting a paracentesis. It was done on 09/17/2017 showing 8 liters of ascites fluid, which was drained without complication. He received albumin postprocedure. He has history of repeated paracentesis requirements in the past. His MELD score last time was 16. His labs at the time of discharge about a month ago showed a bilirubin of 3.4, which was close to h is baseline. His INR at the time of discharge was 1.8 on 09/16/2017. Today, he was brought in when friends or family called EMS for wellness check. According to the repo rt, EMS found the patient to be lying on couch covered in "filth." He reportedly has not moved out o f his couch for 3 days. He literally had to be "peeled off" from his couch. He was found to have a significant open sores and wounds all over his abdomen and a big eschar and open sore on his left hip with multiple bruises and minor scratches on his abdomen and lower extremities. He was severely con fused, but eventually agreed to come to the emergency room by EMS. Upon presentation to the emergency room, his vital signs included blood pressure 124/80 and a pulse o f 104. On examination, he was found to be severely jaundiced and had significant amount of ascites. Multiple wounds as mentioned above are noticed. He was totally altered. CT scan of the head was do ne, which showed a small right-sided subdural hematoma. There was history given by somebody that he has recently fallen. Neurosurgery, Dr. Atkinson was consulted by the Emergency Room and he was see the patient tomorrow for his subdural hematoma. Later after being stabilized in the emergency room, he had a large bloody bowel movement in the emerg ency room. He was noticed to have an INR of 2.9 and platelet count of 62 upon presentation with a he moglobin of 10.3. Prior to him having a bloody bowel movement 2 units of fresh frozen plasma has bee n ordered for him, which he has not yet received. After having the bloody bowel movement, Gastroente rology was consulted in the emergency room and Dr. Kraft saw the patient. He is now being emergently taken to EGD. I have discussed the case with Dr. Kraft at this time. The patient is somewhat awake at this time and did tell me that he has fallen off the porch multiple times and he fell off his stairs and that is how he got his abdominal wounds, but he states that this is 2014 and is still very altered. He has received vancomycin and Zosyn in the emergency room for h is abdominal wounds and cellulitis as well as left hip lateral wound. He is now being admitted to [facility] with myriad of problems including gastrointestinal bleed, coagulopathy, thrombocytopenia, lactic a cidosis and severe jaundice as well as rhabdomyolysis with a creatine kinase of 693. He has history of alcohol abuse and he was able to tell me that he is still drinking about an 8 ounces of beer every day to take his medications. PAST MEDICAL HISTORY: As obtained through chart review. 1. Hepatic cirrhosis. 2. Hepatitis C. 3. Chronic low back pain. 4. Hypertension. 5. Depression. 6. Anxiety. 7. History of chronic kidney disease, stage 2. 8. History of polysubstance abuse. 9. Chronic thrombocytopenia due to hepatic cirrhosis. 10. Alcohol abuse. 11. Ascites requiring paracentesis. 12. Chronic anemia. 13. Pleural effusion secondary to hepatic disorder. PAST SURGICAL HISTORY: Paracentesis most recently on 08/21/2017. SOCIAL HISTORY: He reports that he lives alone and drinks on a daily basis, but he has actually been doing much better than prior to this. He denies any tobacco or drug abuse at this time. FAMILY HISTORY: Unobtainable due to patient's altered status. According to the EMR, it is positive for diabetes and heart disease. REVIEW OF SYSTEMS: Cannot be reliably obtained from the patient due to current mental status. LABORATORY DATA: CBC shows WBCs 3.4, hemoglobin 10.3 with repeat hemoglobin of 9, platelet count of 62. INR 2.9. Serum chemistries: BMP is unremarkable. Lactic acid elevated at 2.5, total bilirubin 11.1, AST 135, ALT 51, alkaline phosphatase 48. CK-MB and troponin normal. Ammonia normal at 41, c reatine kinase 693, lipase 52. Urinalysis has bilirubin and urobilinogen and ketones. Plasma alcoho l level is less than 10. CT scan of the brain by my review has small right-sided subdural hematoma. A 12-lead EKG by my review shows few premature atrial complexes and sinus rhythm at 82 beats per min erasto. PHYSICAL EXAMINATION: VITAL SIGNS: Upon presentation, blood pressure 124/80, pulse of 104, afebrile. GENERAL: He is confused, oriented to self and place, but goes in and out of a coherent thoughts. He is responsive to verbal stimuli and follows simple commands. HEENT: Significant icterus of the sclera and conjunctival pallor noticed. Mucous membrane is slight ly dry. No oropharyngeal exudate or erythema. No blood noticed in the mouth. Head is normocephalic , atraumatic. Pupils are equal, reactive to light and accommodation. NECK: Supple without any lymphadenopathy, JVD or bruit. CHEST: Clear to auscultation without any wheezing, rales or rhonchi. It is limited because of patie nt positioning. CARDIOVASCULAR: Rate and rhythm is regular without any murmur, rubs or gallops. ABDOMEN: Significant abdominal distention is present with positive fluid wave. Abdomen is nontender . Bowel sounds are present. No guarding, rebound or rigidity. EXTREMITIES: Free of any cyanosis, clubbing, or edema. NEUROLOGIC: Oriented to person and place. Memory recall is very poor. He is able to move all 4 blackwell bs without any difficulty. He follows simple commands. Cranial nerves II-XII grossly appears intact . SKIN: He has multiple scratch guerra and superficial scratches all over his body. His abdomen has si gnificant open sores that are oozing in various stages of healing. His biggest sore is on his left l eg laterally on the thigh over the hip area. Approximately the size is my palm and has a black escha r on it and it is discharging seropurulent discharge. Surrounding skin is red and erythematous. PSYCHIATRIC: Normal affect. IMPRESSION AND PLAN: 1. Gastrointestinal bleed, suspected brisk upper gastrointestinal bleed. He has been evaluated by [facility] childoenterologreina and he was taken to endoscopy suite at this time. We will start him on octreotide dr ip, given his history of hepatitis C, cirrhosis, and alcoholism as he most likely has bleeding from e sophageal varices. We will also start him on proton pump drip. We will also start him on empiric an tibiotics in the light of GI bleed in a patient with significant ascites and cirrhosis. H&H will be followed every few hours and if necessary, we will transfuse him with blood. We will reverse his coa gulopathy with fresh frozen plasma that has been ordered in the emergency room. Monitor his INR and his platelet count very closely. Avoid any blood thinners at this time. 2. Sepsis. The patient had elevated lactic acid and leukopenia with significant abdominal and leg c ellulitis and wound infection. We will start him on empiric antibiotics and obtain blood cultures. We will also request wound care to see and follow along. If necessary, we will consult General Surge ry for I&D of his leg wound. He may need imaging studies of his left leg to rule out deeper infectio n and bone involvement. At this time, he is quite unstable and the priority is to stabilize him. Me anwhile, we will continue with IV antibiotics and follow the results of the culture. 3. Coagulopathy. This is secondary to advanced liver failure. We will reverse it with fresh frozen plasma and monitor on a daily basis. As above, we will avoid any heparin products or any other bloo d thinners. 4. Significant jaundice. The patient seems to have worsening liver failure at this time. Once agai n, the priority at this time is stabilization of this patient. We will continue to monitor his bilir ubin on a daily basis. Gastroenterology has seen the patient and we appreciate their recommendations . 5. Rhabdomyolysis. This is likely secondary to prolonged immobilization and muscle damage. Unfortu nately, at this time, the patient is not a candidate for any IV fluids, given significant fluid third spacing. We will repeat the CPK in the morning. 6. Ascites. At some point, the patient would need paracentesis for diagnostic and therapeutic purpo ses. However, at this time, he is quite unstable and coagulopathic to get this time. He will be sta rted on empiric antibiotics for secondary bacterial peritonitis prophylaxis. 7. Alcohol abuse. We will start him on ASE protocol, but avoid any sedative or narcotics on a sched uled basis. Avoid any IV fluids as well given significant ascites. 8. Subdural hematoma. The patient will be seen and followed by Neurosurgery. Once again, we will r everse his coagulopathy and follow frequent neuro checks. 9. Pancytopenia. This is secondary to chronic liver disease and cirrhosis from hepatitis. Continue to follow up on a daily basis. 10. We will consult palliative care team for obvious reasons. This patient needs serious discussion about code status, which is not able to do at this time. No family is available at bedside. His qu ality of life is quite poor as well as his prognosis is dismal. 11. Code status: Presumed FULL at this time as the patient is not able to provide any correct answe rs because of altered mental status and family is not at bedside. 12. Add sequential compression devices for gastrointestinal prophylaxis and proton pump inhibitor as above for gastrointestinal prophylaxis. DISPOSITION: Mr. Little is currently being admitted to [facility] for GI bleed, cellulitis, sepsis, among other things as above. He is quite critical at this time. Estimated length of stay is at least 3-4 midnights. Further management will depend upon his clinical course. Total time spent in the admission and taking care of this patient including [id number] interaction and discussion with the subspecialists and ER physician is 45 minutes.
--- NOTE | 2017-11-04 14:30 | CON ---
DATE OF SERVICE: 11/04/2017 SERVICE: Pulmonary Medicine. REASON FOR CONSULTATION: [facility] patient. HISTORY OF PRESENT ILLNESS: The patient is a 62-year-old white male with a past medical history significant for advanced cirrhosis. He currently lives by himself. He was found in deplorable conditions. He was confused and encephalopathic. He was subsequently brought to the Emergency Department. Laboratories were abnormal. The patient cannot provide any additional elements of the history. He is pleasantly confused and confabulated just about anything that you ask him. PAST MEDICAL HISTORY: 1. Cirrhosis. 2. Hepatitis C. 3. History of alcohol abuse. 4. Chronic low back pain. 5. Hypertension. 6. Major depressive disorder. 7. Anxiety disorder. 8. Chronic kidney disease, stage 2. 9. History of polysubstance drug abuse. 10. Pancytopenia secondary to advanced cirrhosis. 11. History of pleural effusion. PAST SURGICAL HISTORY: Paracentesis, multiple. SOCIAL HISTORY: Negative for current illicit drug use, or tobacco use. He previously had very heavy alcohol use, but reports decreasing consumption recently. He has no exposure to chemicals, dust asbestos or tuberculosis. FAMILY HISTORY: Noncontributory. REVIEW OF SYSTEMS: Unknown. Currently, the patient does not have any specific complaints of on review of systems to include general, head, eyes, nose, throat , cardiovascular, respiratory, GI, , musculoskeletal, neurologic and skin. PHYSICAL EXAMINATION: VITAL SIGNS: Afebrile, pulse 72, blood pressure 110/57, respirations 16, saturation 97% on 2 liters nasal cannula. GENERAL: The patient is awake, alert, no apparent distress. LUNGS: Excellent air entry without prolonged expiratory phase, wheezing, rhonchi or crackles. HEART: Normal rate, regular. ABDOMEN: Soft. Distended. Bowel sounds are present. No rebound or guarding is appreciated. MUSCULOSKELETAL: No cyanosis or clubbing. There is trace 1+ pitting in the bilateral lower extremities. NEUROLOGIC: Grossly nonfocal. LABORATORY DATA: Potassium 3.4. Otherwise, basic metabolic profile is unremarkable. Total bilirubin 8.7. AST and ALT are normal. Ammonia falls within the normal limits. Lactate is down trending. WBC 2.2, hemoglobin 8.3, platelets 55. Urinalysis is positive for nitrites and leukocyte esterase. There is a very few white blood cells, however, in the urine. Plasma alcohol was unremarkable. One out of two blood cultures is growing gram-positive cocci. Bacterial culture from the belly is currently pending. There is a few gram-positive cocci in pairs identified however. IMAGING: CT of brain demonstrates a subdural hematoma with minimal shift. ASSESSMENT: 1. Metabolic encephalopathy. 2. Cirrhosis. 3. Severe sepsis secondary to cellulitis. 4. Subdural hematoma. DISCUSSION AND PLAN: The patient will be watched closely. If his neurologic status remains stable over the next 24 hours, he can be considered for transition to the medical unit. Otherwise, supportive measures are going to be continued. He has been placed empirically on antibiotics to hopefully cover skin shannon. Final culture results are currently pending. Pulmonary will follow along while he remains in this location. 70 minutes have been devoted to this patient in various activities. I personally reviewed all imaging studies and laboratory data noted within this document. For fifty percent of this time, I was interacting with the patient at the bedside or coordinating care with the care team. For the remainder of the time I was immediately available to the patient in the hospital unit. SELIN
[2017-11-04] MEDS ORDERED: Phytonadione 10 MG/ML AMP PO SCH (17:30)
--- NOTE | 2017-11-04 18:17 | PRG ---
DATE OF SERVICE: 11/04/2017 SUBJECTIVE: The patient is much more alert and oriented today than he is. He is eating. He had one bowel movement that seemed to have some red stool. He has had no vomiting. OBJECTIVE: VITAL SIGNS: Temperature 98.2, pulse 75, respiratory rate 18, blood pressure 115/56. CHEST: Clear. CARDIOVASCULAR: Regular rate and rhythm. ABDOMEN: Distended, nontender, without organomegaly or masses. EXTREMITIES: Show edema. LABORATORY DATA: Shows a white blood cell count of 2.2, hemoglobin 8.3, hematocrit 27.6, platelet co unt of 55,000. PT is 27.4 with an INR of 2.4. Chemistries show potassium 3.4, calcium 7.6, total bi lirubin 8.7, AST 89, albumin 2.1. ASSESSMENT: 1. Multiple duodenal ulcers. 2. Anemia -- multifactorial. 3. Maroon stool per rectum -- I suspect this is from his duodenal ulcers, although they were not ble eding at that time they were visualized. 4. Alcoholic hepatitis with cirrhosis. 5. Subdural hematoma. 6. Abdominal wall cellulitis. RECOMMENDATIONS: 1. Discontinue octreotide. 2. Hep-Lock intravenous. 3. Vitamin K. 4. Continue proton pump inhibitor. 5. If the maroon stool continues, he may need a GI bleeding scan and/or colonoscopy.
[2017-11-04] MEDS: Pantoprazole 80 MG, Admixture Fee 1 EACH in Sodium Chloride 0.9% 100 ML IVPB SCH (19:39)
[2017-11-05] MEDS: Piperacillin/Tazobactam 3.375 GM in Sodium Chloride 0.9% 100 ML IVPB SCH ×4 (00:17→18:13)
[2017-11-05] MEDS: Pantoprazole 80 MG, Admixture Fee 1 EACH in Sodium Chloride 0.9% 100 ML IVPB SCH ×2 (05:11→15:01)
[2017-11-05 05:14] LABS: ALT (SGPT) 38 U/L (8-55); AST (SGOT) 77 U/L (5-34); Albumin 2.2 g/dL (3.4-4.8); Alkaline Phosphatase 49 U/L (40-150); Anion Gap 5 mmol/L (10-20); BUN (Urea Nitrogen) 18 mg/dL (8.4-25.7); Calc. Creatinine Clearance 118 mL/min (70-130); Calcium 7.6 mg/dL (7.8-10.44); Carbon Dioxide 28 mmol/L (23-31); Chloride 109 mmol/L (98-107); Estimated GFR-MDRD 76; Globulin 3.7 g/dL (2.4-3.5); Glucose 140 mg/dL (80-115); INR-International Normal Ratio 2.5; Potassium 3.3 mmol/L (3.5-5.1); Protein, Total 5.9 g/dL (5.8-8.1); Prothrombin Time 27.6 SEC (12.0-14.7); Sodium 139 mmol/L (136-145)
[2017-11-05 05:21] LABS: Band 3 % (5-11); Eosinophils 3 % (0-10); Hypochromia SLIGHT = 6-15 cells (100X) (0-5/hpf); Lymphocytes 21 % (21-51); MDiff Complete? YES; Mean Corpuscular HGB CONC 30.1 g/dL (32.0-36.0); Mean Corpuscular Volume 92.9 fl (80.0-94.0); Mean Platelet Volume 6.3 fL (7.4-10.4); Monocytes 11 % (0-10); Neutrophil 62 % (42-75); PLT Morphology Comment Appears Decreased; Platelet Count 65 thou/uL (130-400); RBC Distribution Width 24.6 % (11.5-14.5); Red Blood Cell (RBC) Count 3.21 mill/uL (4.70-6.10); Target Cells SLIGHT = 2-5 cells (100X) (0-1/hpf); White Blood Cell (WBC) Count 2.8 thou/uL (4.8-10.8)
[2017-11-05] MEDS: Vancomycin HCl 1 GM in Premix Bag 1 BAG IVPB SCH ×2 (05:55→20:04)
--- NOTE | 2017-11-05 07:59 | PDOC.PN ---
- Subjective Encounter Start Date: 11/05/17 Encounter Start Time: 10:30 Subjective: Patient stable overnight. Reports chronic back pain this AM. A bit -: confused this AM, waxing and waning level of orientation. - Objective Resuscitation Status: Resuscitation Status DNR:Do Not Resuscitate MAR Reviewed: Yes Vital Signs & Weight: Vital Signs (12 hours) Temp Pulse Resp BP Pulse Ox 11/05/17 07:00 97.6 F 80 18 125/65 93 L 11/05/17 03:39 98.8 F 79 17 103/47 L 95 11/04/17 23:48 99.7 F H 77 18 106/60 95 11/04/17 20:00 99.7 F H 77 18 98 Weight Admit Weight 244 lb 4.8 oz Weight 249 lb 8 oz I&O: 11/04/17 11/05/17 11/06/17 06:59 06:59 06:59 Intake Total 1070 1140 Output Total 300 540 Balance 770 600 Result Diagrams: 11/05/17 04:28 11/05/17 04:28 Phys Exam - Physical Examination Constitutional: NAD HEENT: moist MMs icteric sclera Respiratory: no wheezing, no rales, no rhonchi Cardiovascular: RRR, no significant murmur Gastrointestinal: positive bowel sounds distended, dressing over abdominal wounds Musculoskeletal: pulses present, edema present Neurological: non-focal Psychiatric: normal affect Deviation from normal: A&O x2-3 Dx/Plan (1) Anemia Code(s): D64.9 - ANEMIA, UNSPECIFIED Status: Acute Comment: Likley GI blood loss from ulcer disease, currently hemodynamically stable, continue Protonix, maroon stool but H/H stable today, continue to monitor (2) Cirrhosis Code(s): K74.60 - UNSPECIFIED CIRRHOSIS OF LIVER Status: Chronic Qualifiers: Hepatic cirrhosis type: alcoholic cirrhosis (3) Hepatitis C Code(s): B19.20 - UNSPECIFIED VIRAL HEPATITIS C WITHOUT HEPATIC COMA Status: Chronic (4) Alcohol abuse Code(s): F10.10 - ALCOHOL ABUSE, UNCOMPLICATED Status: Chronic (5) Altered mental status Code(s): R41.82 - ALTERED MENTAL STATUS, UNSPECIFIED Status: Acute Comment: likely chronic from alcohol abuse and cirrhosis, patient with poor memory and concentration, add lactulose for hepatic encephalopathy component (6) Ascites Code(s): R18.8 - OTHER ASCITES Status: Chronic (7) Thrombocytopenia Code(s): D69.6 - THROMBOCYTOPENIA, UNSPECIFIED Status: Chronic (8) Subdural hematoma Code(s): S06.5X9A - TRAUM SUBDR HEM W LOC OF UNSP DURATION, INIT Status: Chronic Comment: likely acute on chronic, no surgery per Neurosurgery as appears stable (9) Cellulitis of abdominal wall Code(s): L03.311 - CELLULITIS OF ABDOMINAL WALL Status: Acute Comment: Vancomycin, Zosyn - Plan cont current plan of care, continue antibiotics, PT/OT, social work nurse * . - Discharge Day Encounter end time: 10:45
[2017-11-05] MEDS ORDERED: Phytonadione 10 MG/ML AMP PO SCH (09:45)
--- NOTE | 2017-11-05 10:31 | PRG ---
DATE OF SERVICE: 11/05/2017 SUBJECTIVE: The patient is doing well. He is eating well. He is having no nausea, vomiting, no bow el movements. He has no complaints. He has still not gotten up out of bed. OBJECTIVE: VITAL SIGNS: Temperature 97.6, pulse 80, respiratory rate 18, blood pressure 125/65. CHEST: Clear. CARDIOVASCULAR: Regular rate and rhythm. ABDOMEN: Soft, distended and nontender. EXTREMITIES: Show edema. LABORATORY DATA: Show potassium 3.3, glucose 140, calcium 7.6, total bilirubin 11, AST of 77, white blood cell count of 2.8, hemoglobin 9.0, and platelet count 65,000. ASSESSMENT: 1. Cirrhosis. 2. Duodenal ulcers. 3. Alcoholic hepatitis. 4. Subdural hematoma. 5. Abdominal wall cellulitis. RECOMMENDATIONS: 1. Vitamin K. 2. Continue proton pump inhibitor. 3. Begin physical therapy. 4. Start Aldactone and Lasix. 5. Abdominal ultrasound.
[2017-11-05] MEDS ORDERED: Cepastat Lozenges 1 LOZ PO PRN (10:39)
[2017-11-05] MEDS ORDERED: Furosemide 20 MG/2 ML VIAL SLOW IVP SCH (13:00)
--- NOTE | 2017-11-05 13:29 | PRG ---
DATE OF SERVICE: 11/05/2017 SERVICE: Pulmonary Medicine. INTERVAL HISTORY: The patient is doing fine from a cardiovascular and respiratory standpoint. He de nies any current chest pain, nausea, vomiting, fevers or chills. Otherwise, there has been no interv al change to his condition. He is breathing comfortably. PHYSICAL EXAMINATION: VITAL SIGNS: Afebrile, pulse 88, blood pressure 104/60, respirations 19, saturation 91% on room air. GENERAL: The patient is awake, alert, no apparent distress. LUNGS: Excellent air entry. There is no prolonged expiratory phase. No crackles, wheezing or rhonc hi are appreciated. HEART: Normal rate and regular. ABDOMEN: Distended with ascites. No rebound or guarding. Bowel sounds are present. MUSCULOSKELETAL: No cyanosis or clubbing. There is 2+ pitting in the bilateral lower extremities. NEUROLOGIC: Grossly nonfocal. LABORATORY DATA: Pancytopenia persists, but is stable. INR 2.5. Creatinine 0.99 and up trending, p otassium 3.3. Total bilirubin is up trending to 11.0, AST 77. Liver function studies are otherwise unremarkable. Albumin is 2.2. Urine nitrites are positive. Blood culture is growing coag negative Staph in 1/2. Bacterial culture is negative so far from the abdomen. ASSESSMENT: 1. Metabolic encephalopathy, resolved. 2. Severe sepsis secondary to abdominal wall cellulitis. 3. Cirrhosis. 4. Duodenal ulcers. 5. Pancytopenia. 6. Subdural hematoma. PLAN: The patient's neurologic function is stable. As such, he can be transitioned to the floor. Yousif reid will continue to follow along for the time being to make certain he does not go on to develo p any significant respiratory failure. His abdominal distention may start to increase his work of re spiration.
[2017-11-05] MEDS: Haloperidol Lactate 5 MG/ML VIAL SLOW IVP PRN ×2 (16:15→20:05)
[2017-11-05 18:07] LABS: Vancomycin, Trough 12.9 ug/mL
[2017-11-06] MEDS: Piperacillin/Tazobactam 3.375 GM in Sodium Chloride 0.9% 100 ML IVPB SCH ×5 (00:28→23:24)
[2017-11-06] MEDS: Pantoprazole 80 MG, Admixture Fee 1 EACH in Sodium Chloride 0.9% 100 ML IVPB SCH (01:28)
[2017-11-06 05:21] LABS: INR-International Normal Ratio 2.5; Prothrombin Time 28.2 SEC (12.0-14.7)
[2017-11-06] MEDS: Vancomycin HCl 1 GM in Premix Bag 1 BAG IVPB SCH ×2 (06:00→17:19)
[2017-11-06 06:09] LABS: ALT (SGPT) 43 U/L (8-55); AST (SGOT) 97 U/L (5-34); Albumin 2.2 g/dL (3.4-4.8); Alkaline Phosphatase 52 U/L (40-150); Anion Gap 9 mmol/L (10-20); BUN (Urea Nitrogen) 14 mg/dL (8.4-25.7); Bilirubin, Total 12.6 mg/dL (0.2-1.2); Calc. Creatinine Clearance 144 mL/min (70-130); Calcium 7.5 mg/dL (7.8-10.44); Carbon Dioxide 22 mmol/L (23-31); Chloride 108 mmol/L (98-107); Estimated GFR-MDRD Greater than 90; Globulin 3.8 g/dL (2.4-3.5); Glucose 99 mg/dL (80-115); Magnesium 1.6 mg/dL (1.6-2.6); Potassium 3.2 mmol/L (3.5-5.1); Sodium 136 mmol/L (136-145)
[2017-11-06 06:28] LABS: Phosphorus 1.4 mg/dL (2.3-4.7)
[2017-11-06 06:40] LABS: #Eosinphils 0.1 thou/uL (0.0-0.7); #Lymphocytes 0.8 thou/uL (1.20-3.40); #Monocytes 0.5 thou/uL (0.11-0.59); #Neutrophils 2.9 thou/uL (1.40-6.50); %Basophils 0.3 % (0.0-1.0); %Lymphocytes 17.8 % (21.0-51.0); %Neutrophils 67.8 % (42.0-75.0); Hemoglobin 9.2 g/dL (14.0-18.0); Mean Corpuscular HGB CONC 30.3 g/dL (32.0-36.0); Mean Corpuscular Hemoglobin 28.1 pg (27.0-31.0); Mean Corpuscular Volume 92.6 fl (80.0-94.0); Mean Platelet Volume 6.9 fL (7.4-10.4); Platelet Count 71 thou/uL (130-400); RBC Distribution Width 25.1 % (11.5-14.5); Red Blood Cell (RBC) Count 3.26 mill/uL (4.70-6.10); White Blood Cell (WBC) Count 4.3 thou/uL (4.8-10.8)
[2017-11-06] MEDS ORDERED: Spironolactone 25 MG TAB PO SCH ×2 (08:00→08:45)
[2017-11-06] MEDS ORDERED: Artificial Tears 18 DROP/0.9 ML EA EYE PRN (08:19)
[2017-11-06] MEDS ORDERED: Chloraseptic Spray 180 ml Bottle PO PRN (08:19)
[2017-11-06] MEDS ORDERED: Ondansetron ODT 4 MG TAB PO PRN (08:19)
[2017-11-06] MEDS ORDERED: Eucerin (Mineral Oil/Petrolatum,White) 30 gm Jar TOP PRN (08:19)
--- NOTE | 2017-11-06 08:29 | ULT ---
ABDOMEN ULTRASOUND: COMPARISON: 08/22/17. HISTORY: Cirrhosis. TECHNIQUE: Utilizing a Multi-Hertz transducer, sonographic imaging of the abdomen is performed in the longitudin al and transverse plane. FINDINGS: Suboptimal evaluation of the IVC, aorta, and inferior vena cava. There is irregularity involving the hepatic margin compatible with the patient's history of sclerosis . Discrete hepatic masses are not appreciated. Main portal vein cannot be assessed. The spleen is enlarged measuring 18.9 cm. Bilaterally, no hydronephrosis. The right kidney measures 11.5 x 4.7 x 4.9 cm. The left kidney norman ures 12.0 x 5.5 x 5.7 cm. Common bile duct diameter is 0.65 cm. Echogenic material in the lumen of the gallbladder compatible with sludge and possible stones. The g allbladder wall is thickened measuring 0.6 cm. There is some fluid in the gallbladder fossa. Negati ve Lemus's sign. IMPRESSION: 1. Cirrhosis. 2. Sludge and stones in the gallbladder. The gallbladder wall is thickened and there is fluid in th e gallbladder fossa. Negative Lemus's sign. HIDA scan if there is concern for cholecystitis. 3. Splenomegaly. 4. Flow in the main portal vein cannot be assessed. If there is concern for portal vein thrombus, c onsider CT. CODE T POS: PREETI
[2017-11-06] MEDS ORDERED: Furosemide 20 MG TAB PO SCH (09:00)
[2017-11-06] MEDS ORDERED: Potassium Phosphate 15 MMOL in Sodium Chloride 0.9% 250 ML 250 ML IVPB SCH (09:00)
[2017-11-06] MEDS: Furosemide 20 MG TAB PO SCH (09:16)
[2017-11-06] MEDS: Multivitamin W/ Minerals 1 TAB PO SCH (09:20)
[2017-11-06] MEDS: Folic Acid 1 MG TAB PO SCH (09:20)
[2017-11-06] MEDS: Cyanocobalamin (Vitamin B-12) 1,000 MCG TAB PO SCH (09:20)
--- NOTE | 2017-11-06 11:19 | PDOC.PN ---
- Subjective Encounter Start Date: 11/06/17 Encounter Start Time: 08:20 -: old records requested/rev Patient seen and examined for cirrhosis. No new complaints. No overnight events - Objective Resuscitation Status: Resuscitation Status DNR:Do Not Resuscitate MAR Reviewed: Yes Vital Signs & Weight: Vital Signs (12 hours) Temp Pulse Resp BP BP Pulse Ox 11/06/17 08:00 98.7 F 83 18 137/77 95 11/06/17 07:26 98.7 F 83 18 137/77 95 11/06/17 04:00 98.9 F 78 20 132/75 132/75 95 11/06/17 00:03 98.3 F 92 20 155/83 H 91 L 11/06/17 00:00 155/83 H Weight Admit Weight 244 lb 4.8 oz Weight 249 lb 8 oz I&O: 11/05/17 11/06/17 11/07/17 06:59 06:59 06:59 Intake Total 1140 1240 Output Total 540 Balance 600 1240 Result Diagrams: 11/06/17 04:46 11/06/17 04:46 Additional Labs: Accuchecks 11/05/17 19:25 POC Glucose 143 H Radiology Reviewed by me: Yes (abdominal US) Phys Exam - Physical Examination Constitutional: NAD HEENT: PERRLA, moist MMs icterus+, pallor+ Neck: no nodes, no JVD, supple Respiratory: no wheezing, no rales, no rhonchi Cardiovascular: RRR, no significant murmur, no rub Gastrointestinal: soft, non-tender, positive bowel sounds ascites+, wound with dressing Musculoskeletal: pulses present, edema present Neurological: non-focal Lymphatic: no nodes Psychiatric: normal affect Skin: normal turgor Deviation from normal: multiple bruise Dx/Plan (1) Acute metabolic encephalopathy Code(s): G93.41 - METABOLIC ENCEPHALOPATHY Status: Acute (2) Alcoholic cirrhosis of liver with ascites Code(s): K70.31 - ALCOHOLIC CIRRHOSIS OF LIVER WITH ASCITES Status: Acute (3) Anemia due to acute blood loss Code(s): D62 - ACUTE POSTHEMORRHAGIC ANEMIA Status: Acute (4) Cellulitis of abdominal wall Code(s): L03.311 - CELLULITIS OF ABDOMINAL WALL Status: Acute Comment: Vancomycin, Zosyn (5) Duodenal ulcer Status: Acute (6) GI bleed Code(s): K92.2 - GASTROINTESTINAL HEMORRHAGE, UNSPECIFIED Status: Acute (7) Hypokalemia Code(s): E87.6 - HYPOKALEMIA Status: Acute (8) Hypophosphatemia Code(s): E83.39 - OTHER DISORDERS OF PHOSPHORUS METABOLISM Status: Acute (9) Sepsis Code(s): A41.9 - SEPSIS, UNSPECIFIED ORGANISM Status: Acute (10) Subdural hematoma Code(s): S06.5X9A - TRAUM SUBDR HEM W LOC OF UNSP DURATION, INIT Status: Acute Comment: likely acute on chronic, no surgery per Neurosurgery as appears stable (11) Alcohol abuse Code(s): F10.10 - ALCOHOL ABUSE, UNCOMPLICATED Status: Chronic (12) Coagulopathy Status: Chronic (13) Hepatitis C Code(s): B19.20 - UNSPECIFIED VIRAL HEPATITIS C WITHOUT HEPATIC COMA Status: Chronic (14) Jaundice, hepatocellular Code(s): K76.89 - OTHER SPECIFIED DISEASES OF LIVER Status: Chronic (15) Obesity (BMI 30.0-34.9) Code(s): E66.9 - OBESITY, UNSPECIFIED Status: Chronic (16) Thrombocytopenia Code(s): D69.6 - THROMBOCYTOPENIA, UNSPECIFIED Status: Chronic (17) Lactic acidosis Code(s): E87.2 - ACIDOSIS Status: Resolved - Plan cont current plan of care, continue antibiotics * medication reviewed as below * symptomatic treatment * continue vancomycin and zosyn * wound care * once protonix drip over, will change to po protonix 40 mg bid. * replace potassium phosphate Review of Systems - Review of Systems Constitutional: negative: fever, chills, sweats, weakness, malaise, other Eyes: negative: Pain, Vision Change, Conjunctivae Inflammation, Eyelid Inflammation, Redness, Other ENT: negative: Ear Pain, Ear Discharge, Nose Pain, Nose Discharge, Nose Congestion, Mouth Pain, Mouth Swelling, Throat Pain, Throat Swelling, Other Respiratory: negative: Cough, Dry, Shortness of Breath, Hemoptysis, SOB with Excertion, Pleuritic Pain, Sputum, Wheezing Cardiovascular: negative: chest pain, palpitations, orthopnea, paroxysmal nocturnal dyspnea, edema, light headedness, other Gastrointestinal: negative: Nausea, Vomiting, Abdominal Pain, Diarrhea, Constipation, Melena, Hematochezia, Other Genitourinary: negative: Dysuria, Frequency, Incontinence, Hematuria, Retention , Other Musculoskeletal: negative: Neck Pain, Shoulder Pain, Arm Pain, Back Pain, Hand Pain, Leg Pain, Foot Pain, Other Skin: Rash. negative: Lesions, Saturn[place], Bruising, Other - Medications/Allergies Allergies/Adverse Reactions: Allergies Allergy/AdvReac Type Severity Reaction Status Date / Time No Known Drug Allergies Allergy Verified 09/16/17 22:19 Medications: Current Medications Al Hydroxide/Mg Hydroxide (Maalox) 30 ml PO Q6H PRN PRN Reason: Heartburn or Indigestion Artificial Tears (Tears Naturale) 0 drop EA EYE PRN PRN PRN Reason: Dry Eyes Bisacodyl (Dulcolax) 10 mg PO DAILYPRN PRN PRN Reason: Constipation Calcium Carbonate (Tums) 1,000 mg PO Q4H PRN PRN Reason: Heartburn or Indigestion Cyanocobalamin (Vitamin B-12) 1,000 mcg PO DAILY [facility] Last Admin: 11/06/17 09:20 Dose: 1,000 mcg Folic Acid (Folvite) 1 mg PO DAILY [facility] Last Admin: 11/06/17 09:20 Dose: 1 mg Furosemide (Lasix) 40 mg PO DAILY [facility] Last Admin: 11/06/17 09:16 Dose: 40 mg Guaifenesin (Robitussin Sf) 200 mg PO Q4H PRN PRN Reason: Cough Haloperidol Lactate (Haldol) 1 mg SLOW IVP Q4H PRN PRN Reason: Agitation Last Admin: 11/05/17 20:05 Dose: 1 mg Hydralazine HCl (Apresoline) 10 mg SLOW IVP Q4H PRN PRN Reason: Systolic BP > 170 Piperacillin Sod/Tazobactam (Sod 3.375 gm/ Sodium Chloride) 100 mls @ 200 mls/ hr IVPB Q6HR [facility] Last Admin: 11/06/17 11:17 Dose: 100 mls Vancomycin HCl 1 gm/ Device 200 mls @ 200 mls/hr IVPB 0600,1800 [facility] Last Admin: 11/06/17 06:00 Dose: 200 mls Potassium Phosphate 15 mmol/ (Sodium Chloride) 255 mls @ 62.5 mls/hr IVPB 0900 [facility] Stop: 11/06/17 13:05 Last Admin: 11/06/17 09:16 Dose: 255 mls Iron/Minerals/Multivitamins (Theragran M) 1 tab PO DAILY [facility] Last Admin: 11/06/17 09:20 Dose: 1 tab Lactulose (Lactulose) 20 gm PO DAILYPRN PRN PRN Reason: Constipation Lactulose (Lactulose) 20 gm PO BID [facility] Last Admin: 11/06/17 09:16 Dose: 20 gm Loratadine (Claritin) 10 mg PO DAILYPRN PRN PRN Reason: Sinus Symptoms Mineral Oil/White Petrolatum (Eucerin Cream) 0 gm TOP BIDPRN PRN PRN Reason: Dry Skin Nitroglycerin (Nitrostat) 0.4 mg SL Q5MIN PRN PRN Reason: Chest Pain Ondansetron HCl (Zofran) 4 mg IVP Q6H PRN PRN Reason: Nausea/Vomiting Ondansetron HCl (Zofran Odt) 4 mg PO Q6H PRN PRN Reason: Nausea/Vomiting Pantoprazole Sodium (Protonix) 40 mg PO BID [facility] Phenol (Chloraseptic [place] 180 Ml Bot) 0 ml PO PRN PRN PRN Reason: Sore Throat Senna (Senokot) 2 tab PO HSPRN PRN PRN Reason: Constipation Sodium Chloride (Flush - Normal Saline) 10 ml IVF Q12HR [facility] Last Admin: 11/06/17 09:17 Dose: 10 ml Sodium Chloride (Flush - Normal Saline) 10 ml IVF PRN PRN PRN Reason: Saline Flush Thiamine HCl (Thiamine) 100 mg PO DAILY [facility] Last Admin: 11/06/17 09:19 Dose: 100 mg Throat Lozenges (Cepastat Lozenges) 1 mya PO Q2H PRN PRN Reason: Sore Throat Last Admin: 11/05/17 11:20 Dose: 1 mya
--- NOTE | 2017-11-06 11:56 | PRG ---
DATE OF SERVICE: 11/06/2017 SUBJECTIVE: The patient is eating well. He is having bowel movements. He does not know whether the re is blood in the bowel movements or not, because he cannot see it. He is not getting up yet. OBJECTIVE: VITAL SIGNS: Temperature is 98.7, pulse 83, respiratory rate 18, blood pressure 137/77. CHEST: Clear. CARDIOVASCULAR: Regular rate and rhythm. ABDOMEN: Protuberant. No organomegaly or masses appreciable. LABORATORY DATA: Shows a white blood cell count of 4.3, hemoglobin 9.2, hematocrit 30.2, platelet co unt 71,000. PT is 28.2 with an INR of 2.5. Chemistries significant for potassium of 3.2, CO2 of 22, total bilirubin is 12.6, albumin 2.2. ASSESSMENT: 1. Duodenal ulcers. 2. Alcoholic cirrhosis. 3. Abdominal wall cellulitis. 4. Subdural hematoma. RECOMMENDATIONS: Continue proton-pump inhibitor, may switch to oral tablet. The ultrasound does not mention the ascites. Therefore, we will discontinue Aldactone and Lasix.
[2017-11-06] MEDS ORDERED: Potassium Chloride 20 MEQ TAB PO SCH (12:15)
--- NOTE | 2017-11-06 12:28 | PRG ---
DATE OF SERVICE: 11/06/2017 SERVICE: Pulmonary Medicine. INTERVAL HISTORY: The patient is doing fine from a respiratory standpoint. He is breathing comforta ruma. There has been no interval change to his condition. Last night, he got a little confused and p ulled all his IVs out. Currently, he is restrained. PHYSICAL EXAMINATION: VITAL SIGNS: Afebrile, pulse 83, blood pressure 137/77, respirations 18, saturation 95% on room air. GENERAL: The patient is awake, alert, in no apparent distress. LUNGS: Decent air entry. No prolonged expiratory phase, wheezing, rhonchi, or crackles. HEART: Normal rate, regular. ABDOMEN: Distended with ascites. No rebound or guarding. Bowel sounds are positive. MUSCULOSKELETAL: No cyanosis or clubbing. There is 1+ pitting in the bilateral lower extremities. NEUROLOGIC: Grossly nonfocal. LABORATORY DATA: WBC 4.3, hemoglobin 9.2, platelets 71,000. INR 2.5. Potassium 3.2. Basic metabol ic profile is, otherwise, unremarkable. Phosphorus 1.4. Magnesium 1.6. Liver function studies are, otherwise, essentially unremarkable except for an AST of 97. Total bilirubin continues to trend upw adri to 12.6. Blood cultures growing coag-negative Staph aureus in 1/. Bacterial culture remains ne gative. IMAGING: Abdominal ultrasound demonstrates cirrhosis. Sludge in the gallbladder. Negative Lemus's sign. Splenomegaly. Flow in the main portal vein cannot be assessed. ASSESSMENT: 1. Metabolic encephalopathy. 2. Severe sepsis secondary to abdominal wall cellulitis. 3. Cirrhosis. 4. Duodenal ulcers. 5. Pancytopenia. 6. Subdural hematoma. 7. Electrolyte disorders including hypophosphatemia, hypokalemia, hypomagnesemia. PLAN: We will replace the phosphorus, potassium, and magnesium. At this point, he has no further re quirements for inpatient Pulmonary or Critical Care opinion, and I will sign off. Please call with a dditional questions or concerns moving forward.
[2017-11-06] MEDS ORDERED: Potassium Phosphate 30 MMOL in Sodium Chloride 0.9% 500 ML IVPB SCH (12:30)
[2017-11-06] MEDS ORDERED: Magnesium 2 GM/NS 0.9% 100 ML 2 GM in Premix Bag 1 BAG IVPB SCH (12:30)
[2017-11-06] MEDS ORDERED: Phytonadione 10 MG/ML AMP PO SCH (13:00)
[2017-11-06] MEDS: Haloperidol Lactate 5 MG/ML VIAL SLOW IVP PRN ×2 (18:56→23:24)
[2017-11-07 05:14] LABS: #Eosinphils 0.1 thou/uL (0.0-0.7); #Lymphocytes 0.8 thou/uL (1.20-3.40); #Monocytes 0.5 thou/uL (0.11-0.59); #Neutrophils 3.5 thou/uL (1.40-6.50); %Basophils 0.2 % (0.0-1.0); %Eosinophils 2.3 % (0.0-10.0); %Lymphocytes 16.7 % (21.0-51.0); %Monocytes 10.7 % (0.0-10.0); %Neutrophils 70.1 % (42.0-75.0); Hemoglobin 9.1 g/dL (14.0-18.0); Mean Corpuscular HGB CONC 30.7 g/dL (32.0-36.0); Mean Corpuscular Hemoglobin 28.8 pg (27.0-31.0); Mean Platelet Volume 5.7 fL (7.4-10.4); Platelet Count 74 thou/uL (130-400); RBC Distribution Width 25.6 % (11.5-14.5); Red Blood Cell (RBC) Count 3.15 mill/uL (4.70-6.10)
[2017-11-07 05:17] LABS: INR-International Normal Ratio 2.7; Prothrombin Time 29.9 SEC (12.0-14.7)
[2017-11-07 05:37] LABS: ALT (SGPT) 45 U/L (8-55); AST (SGOT) 99 U/L (5-34); Albumin 2.1 g/dL (3.4-4.8); Alkaline Phosphatase 54 U/L (40-150); Anion Gap 10 mmol/L (10-20); BUN (Urea Nitrogen) 13 mg/dL (8.4-25.7); Bilirubin, Total 14.2 mg/dL (0.2-1.2); Calc. Creatinine Clearance 144 mL/min (70-130); Calcium 7.3 mg/dL (7.8-10.44); Carbon Dioxide 23 mmol/L (23-31); Chloride 109 mmol/L (98-107); Estimated GFR-MDRD Greater than 90; Globulin 3.7 g/dL (2.4-3.5); Glucose 83 mg/dL (80-115); Phosphorus 1.9 mg/dL (2.3-4.7); Potassium 3.7 mmol/L (3.5-5.1); Protein, Total 5.8 g/dL (5.8-8.1); Sodium 138 mmol/L (136-145)
[2017-11-07] MEDS: Piperacillin/Tazobactam 3.375 GM in Sodium Chloride 0.9% 100 ML IVPB SCH (05:54)
[2017-11-07] MEDS: Vancomycin HCl 1 GM in Premix Bag 1 BAG IVPB SCH ×2 (05:54→17:21)
[2017-11-07] MEDS ORDERED: Spironolactone 25 MG TAB PO SCH (08:00)
[2017-11-07] MEDS: Furosemide 20 MG TAB PO SCH (08:56)
[2017-11-07] MEDS: Folic Acid 1 MG TAB PO SCH (08:56)
[2017-11-07] MEDS: Multivitamin W/ Minerals 1 TAB PO SCH (08:57)
[2017-11-07] MEDS: Cyanocobalamin (Vitamin B-12) 1,000 MCG TAB PO SCH (08:57)
[2017-11-07] MEDS: cefTRIAXone\\ROCEPHIN 2 GM in Sodium Chloride 0.9% 100 ML IVPB SCH (09:04)
[2017-11-07] MEDS: K-Phos Neutral 250 MG TAB PO SCH ×2 (09:10→17:21)
--- NOTE | 2017-11-07 09:59 | PRG ---
DATE OF SERVICE: 11/07/2017 SUBJECTIVE: The patient is without specific complaints. OBJECTIVE: VITAL SIGNS: Temperature 98.6, pulse 89, respiratory rate 22, blood pressure 150/81. CHEST: Clear. ABDOMEN: Protuberant, positive fluid wave. His wounds are healing. EXTREMITIES: Show edema. LABORATORY DATA: Shows a white blood cell count of 5.0, hemoglobin 9.1, hematocrit 29.6. PT is 29.9 with an INR of 2.7. Chemistry is significant for a calcium 7.3, alkaline phosphatase 109, total christi irubin 14.2, albumin 2.1. The ultrasound was discussed with the radiologist and they feel he does mena ve significant ascites. ASSESSMENT: 1. Alcoholic hepatitis and cirrhosis. 2. Ascites. 3. Abdominal wounds - this would make the patient not a candidate for steroid therapy. 4. Electrolyte abnormalities. 5. Duodenal ulcers. 6. Subdural hematoma. RECOMMENDATIONS: Resume Aldactone and Lasix.
--- NOTE | 2017-11-07 10:05 | PDOC.PN ---
- Subjective Encounter Start Date: 11/07/17 Encounter Start Time: 08:20 Patient seen and examined for cirrhosis, pt is confused, No overnight events - Objective Resuscitation Status: Resuscitation Status DNR:Do Not Resuscitate MAR Reviewed: Yes Vital Signs & Weight: Vital Signs (12 hours) Temp Pulse Resp BP BP Pulse Ox 11/07/17 09:18 150/81 H 11/07/17 07:32 98.6 F 89 22 H 150/81 H 94 L 11/07/17 04:00 120/77 11/07/17 00:00 142/80 H Weight Admit Weight 244 lb 4.8 oz Weight 249 lb 8 oz I&O: 11/06/17 11/07/17 11/08/17 06:59 06:59 06:59 Intake Total 1240 1180 Output Total 300 Balance 1240 880 Result Diagrams: 11/07/17 03:59 11/07/17 03:59 Additional Labs: Accuchecks 11/07/17 05:38 POC Glucose 90 Phys Exam - Physical Examination Constitutional: NAD HEENT: PERRLA, moist MMs icterus++ Neck: no JVD, supple Respiratory: no rales, wheezing present Cardiovascular: RRR, no significant murmur, no rub tachycardia tense, with abdominal wound with dressing Musculoskeletal: pulses present, edema present Neurological: non-focal no asterexis Lymphatic: no nodes Psychiatric: normal affect Deviation from normal: confused Skin: normal turgor Deviation from normal: bruise+ Dx/Plan (1) Acute metabolic encephalopathy Code(s): G93.41 - METABOLIC ENCEPHALOPATHY Status: Acute (2) Sepsis Code(s): A41.9 - SEPSIS, UNSPECIFIED ORGANISM Status: Acute (3) Cellulitis of abdominal wall Code(s): L03.311 - CELLULITIS OF ABDOMINAL WALL Status: Acute Comment: Vancomycin, Zosyn (4) GI bleed Code(s): K92.2 - GASTROINTESTINAL HEMORRHAGE, UNSPECIFIED Status: Acute (5) Anemia due to acute blood loss Code(s): D62 - ACUTE POSTHEMORRHAGIC ANEMIA Status: Acute Comment: now stable (6) Duodenal ulcer Status: Acute (7) Hypokalemia Code(s): E87.6 - HYPOKALEMIA Status: Acute (8) Hypophosphatemia Code(s): E83.39 - OTHER DISORDERS OF PHOSPHORUS METABOLISM Status: Acute (9) Subdural hematoma Code(s): S06.5X9A - TRAUM SUBDR HEM W LOC OF UNSP DURATION, INIT Status: Acute Comment: likely acute on chronic, no surgery per Neurosurgery as appears stable (10) Alcohol abuse Code(s): F10.10 - ALCOHOL ABUSE, UNCOMPLICATED Status: Chronic (11) Coagulopathy Status: Chronic (12) Hepatitis C Code(s): B19.20 - UNSPECIFIED VIRAL HEPATITIS C WITHOUT HEPATIC COMA Status: Chronic (13) Jaundice, hepatocellular Code(s): K76.89 - OTHER SPECIFIED DISEASES OF LIVER Status: Chronic (14) Obesity (BMI 30.0-34.9) Code(s): E66.9 - OBESITY, UNSPECIFIED Status: Chronic (15) Thrombocytopenia Code(s): D69.6 - THROMBOCYTOPENIA, UNSPECIFIED Status: Chronic (16) Lactic acidosis Code(s): E87.2 - ACIDOSIS Status: Resolved (17) Alcoholic cirrhosis of liver with ascites Code(s): K70.31 - ALCOHOLIC CIRRHOSIS OF LIVER WITH ASCITES Status: Chronic - Plan cont current plan of care, continue antibiotics, PT/OT, licensed social worker * wound care * continue lasix and aldactone * will change zosyn to rocephin * add duoneb * prognosis is guarded * medication reviewed as below * symptomatic treatment * will need placement * GI following * continue protonix. Review of Systems - Review of Systems Other: not reliable with pt as he is confused - Medications/Allergies Allergies/Adverse Reactions: Allergies Allergy/AdvReac Type Severity Reaction Status Date / Time No Known Drug Allergies Allergy Verified 09/16/17 22:19 Medications: Current Medications Al Hydroxide/Mg Hydroxide (Maalox) 30 ml PO Q6H PRN PRN Reason: Heartburn or Indigestion Albuterol/Ipratropium (Duoneb) 3 ml NEB [id number] PRN PRN Reason: SOB &/or Wheezing Artificial Tears (Tears Naturale) 0 drop EA EYE PRN PRN PRN Reason: Dry Eyes Bisacodyl (Dulcolax) 10 mg PO DAILYPRN PRN PRN Reason: Constipation Calcium Carbonate (Tums) 1,000 mg PO Q4H PRN PRN Reason: Heartburn or Indigestion Cyanocobalamin (Vitamin B-12) 1,000 mcg PO DAILY [facility] Last Admin: 11/07/17 08:57 Dose: 1,000 mcg Folic Acid (Folvite) 1 mg PO DAILY [facility] Last Admin: 11/07/17 08:56 Dose: 1 mg Furosemide (Lasix) 80 mg PO 0900,1400 [facility] Guaifenesin (Robitussin Sf) 200 mg PO Q4H PRN PRN Reason: Cough Haloperidol Lactate (Haldol) 1 mg SLOW IVP Q4H PRN PRN Reason: Agitation Last Admin: 11/06/17 23:24 Dose: 1 mg Hydralazine HCl (Apresoline) 10 mg SLOW IVP Q4H PRN PRN Reason: Systolic BP > 170 Vancomycin HCl 1 gm/ Device 200 mls @ 200 mls/hr IVPB 0600,1800 [facility] Last Admin: 11/07/17 05:54 Dose: 200 mls Ceftriaxone Sodium 2 gm/ (Sodium Chloride) 100 mls @ 200 mls/hr IVPB Q24HR [facility] Last Admin: 11/07/17 09:04 Dose: 100 mls Iron/Minerals/Multivitamins (Theragran M) 1 tab PO DAILY [facility] Last Admin: 11/07/17 08:57 Dose: 1 tab Lactulose (Lactulose) 20 gm PO DAILYPRN PRN PRN Reason: Constipation Lactulose (Lactulose) 20 gm PO BID [facility] Last Admin: 11/07/17 08:56 Dose: 20 gm Loratadine (Claritin) 10 mg PO DAILYPRN PRN PRN Reason: Sinus Symptoms Mineral Oil/White Petrolatum (Eucerin Cream) 0 gm TOP BIDPRN PRN PRN Reason: Dry Skin Nitroglycerin (Nitrostat) 0.4 mg SL Q5MIN PRN PRN Reason: Chest Pain Ondansetron HCl (Zofran) 4 mg IVP Q6H PRN PRN Reason: Nausea/Vomiting Ondansetron HCl (Zofran Odt) 4 mg PO Q6H PRN PRN Reason: Nausea/Vomiting Pantoprazole Sodium (Protonix) 40 mg PO BID [facility] Last Admin: 11/07/17 08:56 Dose: 40 mg Phenol (Chloraseptic [place] 180 Ml Bot) 0 ml PO PRN PRN PRN Reason: Sore Throat Phosphorus (Kphos Neutral) 500 mg PO BID-[facility] Last Admin: 11/07/17 09:10 Dose: 500 mg Senna (Senokot) 2 tab PO HSPRN PRN PRN Reason: Constipation Sodium Chloride (Flush - Normal Saline) 10 ml IVF Q12HR [facility] Last Admin: 11/07/17 08:57 Dose: 10 ml Sodium Chloride (Flush - Normal Saline) 10 ml IVF PRN PRN PRN Reason: Saline Flush Spironolactone (Aldactone) 100 mg PO QA-[facility] Spironolactone (Aldactone) 100 mg PO NOW [facility] Stop: 11/07/17 12:30 Thiamine HCl (Thiamine) 100 mg PO DAILY [facility] Last Admin: 11/07/17 08:57 Dose: 100 mg Throat Lozenges (Cepastat Lozenges) 1 mya PO Q2H PRN PRN Reason: Sore Throat Last Admin: 11/05/17 11:20 Dose: 1 mya
[2017-11-07] MEDS ORDERED: Spironolactone 100 MG TAB PO SCH (10:30)
[2017-11-07 12:26] VITALS: BMI 31.1
[2017-11-07] MEDS: Furosemide 80 MG TAB PO SCH (14:45)
[2017-11-08 05:17] LABS: Anion Gap 10 mmol/L (10-20); BUN (Urea Nitrogen) 18 mg/dL (8.4-25.7); Calc. Creatinine Clearance 112 mL/min (70-130); Calcium 7.6 mg/dL (7.8-10.44); Carbon Dioxide 21 mmol/L (23-31); Chloride 109 mmol/L (98-107); Estimated GFR-MDRD 70; Glucose 81 mg/dL (80-115); Potassium 3.8 mmol/L (3.5-5.1); Sodium 136 mmol/L (136-145)
[2017-11-08 05:25] LABS: Phosphorus 1.9 mg/dL (2.3-4.7)
[2017-11-08] MEDS: Vancomycin HCl 1 GM in Premix Bag 1 BAG IVPB SCH (05:43)
[2017-11-08 06:17] LABS: #Eosinphils 0.2 thou/uL (0.0-0.7); #Lymphocytes 1.1 thou/uL (1.20-3.40); #Monocytes 0.7 thou/uL (0.11-0.59); #Neutrophils 5.1 thou/uL (1.40-6.50); %Basophils 0.2 % (0.0-1.0); %Eosinophils 2.4 % (0.0-10.0); %Lymphocytes 15.3 % (21.0-51.0); %Monocytes 10.1 % (0.0-10.0); %Neutrophils 72.1 % (42.0-75.0); Anisocytosis SLIGHT = 6-15 cells (100X) (0-5/hpf); Elliptocytes SLIGHT = 2-5 cells (100X) (0-1/hpf); Hemoglobin 8.7 g/dL (14.0-18.0); MDiff Complete? YES; Mean Corpuscular HGB CONC 30.4 g/dL (32.0-36.0); Mean Corpuscular Hemoglobin 28.5 pg (27.0-31.0); Mean Corpuscular Volume 93.8 fl (80.0-94.0); Mean Platelet Volume 11.2 fL (7.4-10.4); PLT Morphology Comment Appears Decreased; Platelet Count 97 thou/uL (130-400); RBC Distribution Width 25.5 % (11.5-14.5); Red Blood Cell (RBC) Count 3.06 mill/uL (4.70-6.10); Target Cells SLIGHT = 2-5 cells (100X) (0-1/hpf); White Blood Cell (WBC) Count 7.1 thou/uL (4.8-10.8)
[2017-11-08] MEDS ORDERED: Potassium Phosphate 15 MMOL in Sodium Chloride 0.9% 250 ML 250 ML IVPB SCH (07:00)
[2017-11-08] MEDS ORDERED: Spironolactone 100 MG TAB PO SCH (08:00)
[2017-11-08] MEDS: Multivitamin W/ Minerals 1 TAB PO SCH (08:25)
[2017-11-08] MEDS: Cyanocobalamin (Vitamin B-12) 1,000 MCG TAB PO SCH (08:25)
[2017-11-08] MEDS: Folic Acid 1 MG TAB PO SCH (08:25)
[2017-11-08] MEDS: K-Phos Neutral 250 MG TAB PO SCH ×2 (08:26→17:50)
[2017-11-08] MEDS: Furosemide 80 MG TAB PO SCH ×2 (08:27→14:45)
--- NOTE | 2017-11-08 09:34 | PDOC.PN ---
- Subjective Encounter Start Date: 11/08/17 Encounter Start Time: 08:30 Patient seen and examined for cirrhosis. No new complaints. No overnight events - Objective Resuscitation Status: Resuscitation Status DNR:Do Not Resuscitate MAR Reviewed: Yes Vital Signs & Weight: Vital Signs (12 hours) Temp Pulse Resp BP BP Pulse Ox 11/08/17 07:59 98.6 F 87 16 118/74 90 L 11/08/17 07:08 98.2 F 82 20 11/08/17 05:51 98.2 F 82 20 112/75 90 L 11/08/17 04:00 112/73 Weight Admit Weight 244 lb 4.8 oz Weight 249 lb 8 oz I&O: 11/07/17 11/08/17 11/09/17 06:59 06:59 06:59 Intake Total 1180 1480 Output Total 300 100 Balance 880 1380 Result Diagrams: 11/08/17 03:42 11/08/17 03:42 Additional Labs: Accuchecks 11/06/17 20:58 POC Glucose 107 Phys Exam - Physical Examination Constitutional: NAD HEENT: PERRLA, moist MMs icterus+ Neck: no JVD, supple Respiratory: no wheezing, no rales, no rhonchi Cardiovascular: RRR, no significant murmur, no rub tense ascites, wound with dressing Musculoskeletal: pulses present, edema present Neurological: non-focal Lymphatic: no nodes Psychiatric: normal affect Deviation from normal: confused Skin: no rash, normal turgor Dx/Plan (1) Acute metabolic encephalopathy Code(s): G93.41 - METABOLIC ENCEPHALOPATHY Status: Acute (2) Sepsis Code(s): A41.9 - SEPSIS, UNSPECIFIED ORGANISM Status: Acute (3) Cellulitis of abdominal wall Code(s): L03.311 - CELLULITIS OF ABDOMINAL WALL Status: Acute Comment: Vancomycin, Zosyn (4) GI bleed Code(s): K92.2 - GASTROINTESTINAL HEMORRHAGE, UNSPECIFIED Status: Acute (5) Anemia due to acute blood loss Code(s): D62 - ACUTE POSTHEMORRHAGIC ANEMIA Status: Acute Comment: now stable (6) Duodenal ulcer Status: Acute (7) Hypokalemia Code(s): E87.6 - HYPOKALEMIA Status: Acute (8) Hypophosphatemia Code(s): E83.39 - OTHER DISORDERS OF PHOSPHORUS METABOLISM Status: Acute (9) Subdural hematoma Code(s): S06.5X9A - TRAUM SUBDR HEM W LOC OF UNSP DURATION, INIT Status: Acute Comment: likely acute on chronic, no surgery per Neurosurgery as appears stable (10) Alcohol abuse Code(s): F10.10 - ALCOHOL ABUSE, UNCOMPLICATED Status: Chronic (11) Coagulopathy Status: Chronic (12) Hepatitis C Code(s): B19.20 - UNSPECIFIED VIRAL HEPATITIS C WITHOUT HEPATIC COMA Status: Chronic (13) Jaundice, hepatocellular Code(s): K76.89 - OTHER SPECIFIED DISEASES OF LIVER Status: Chronic (14) Obesity (BMI 30.0-34.9) Code(s): E66.9 - OBESITY, UNSPECIFIED Status: Chronic (15) Thrombocytopenia Code(s): D69.6 - THROMBOCYTOPENIA, UNSPECIFIED Status: Chronic (16) Lactic acidosis Code(s): E87.2 - ACIDOSIS Status: Resolved (17) Alcoholic cirrhosis of liver with ascites Code(s): K70.31 - ALCOHOLIC CIRRHOSIS OF LIVER WITH ASCITES Status: Chronic - Plan cont current plan of care, 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 Review of Systems - Review of Systems ENT: negative: Ear Pain, Ear Discharge, Nose Pain, Nose Discharge, Nose Congestion, Mouth Pain, Mouth Swelling, Throat Pain, Throat Swelling, Other Respiratory: negative: Cough, Dry, Shortness of Breath, Hemoptysis, SOB with Excertion, Pleuritic Pain, Sputum, Wheezing Cardiovascular: negative: chest pain, palpitations, orthopnea, paroxysmal nocturnal dyspnea, edema, light headedness, other Gastrointestinal: negative: Nausea, Vomiting, Abdominal Pain, Diarrhea, Constipation, Melena, Hematochezia, Other Genitourinary: negative: Dysuria, Frequency, Incontinence, Hematuria, Retention , Other Musculoskeletal: negative: Neck Pain, Shoulder Pain, Arm Pain, Back Pain, Hand Pain, Leg Pain, Foot Pain, Other Other: not reliable with pt as he says no to all questions and he is confused - Medications/Allergies Allergies/Adverse Reactions: Allergies Allergy/AdvReac Type Severity Reaction Status Date / Time No Known Drug Allergies Allergy Verified 09/16/17 22:19 Medications: Current Medications Al Hydroxide/Mg Hydroxide (Maalox) 30 ml PO Q6H PRN PRN Reason: Heartburn or Indigestion Albuterol/Ipratropium (Duoneb) 3 ml NEB [id number] PRN PRN Reason: SOB &/or Wheezing Artificial Tears (Tears Naturale) 0 drop EA EYE PRN PRN PRN Reason: Dry Eyes Bisacodyl (Dulcolax) 10 mg PO DAILYPRN PRN PRN Reason: Constipation Calcium Carbonate (Tums) 1,000 mg PO Q4H PRN PRN Reason: Heartburn or Indigestion Cyanocobalamin (Vitamin B-12) 1,000 mcg PO DAILY [facility] Last Admin: 11/08/17 08:25 Dose: 1,000 mcg Folic Acid (Folvite) 1 mg PO DAILY [facility] Last Admin: 11/08/17 08:25 Dose: 1 mg Furosemide (Lasix) 80 mg PO 0900,1400 [facility] Last Admin: 11/08/17 08:27 Dose: 80 mg Guaifenesin (Robitussin Sf) 200 mg PO Q4H PRN PRN Reason: Cough Haloperidol Lactate (Haldol) 1 mg SLOW IVP Q4H PRN PRN Reason: Agitation Last Admin: 11/06/17 23:24 Dose: 1 mg Hydralazine HCl (Apresoline) 10 mg SLOW IVP Q4H PRN PRN Reason: Systolic BP > 170 Vancomycin HCl 1 gm/ Device 200 mls @ 200 mls/hr IVPB 0600,1800 [facility] Last Admin: 11/08/17 05:43 Dose: 200 mls Ceftriaxone Sodium 2 gm/ (Sodium Chloride) 100 mls @ 200 mls/hr IVPB Q24HR [facility] Last Admin: 11/07/17 09:04 Dose: 100 mls Iron/Minerals/Multivitamins (Theragran M) 1 tab PO DAILY [facility] Last Admin: 11/08/17 08:25 Dose: 1 tab Lactulose (Lactulose) 20 gm PO DAILYPRN PRN PRN Reason: Constipation Lactulose (Lactulose) 20 gm PO BID [facility] Last Admin: 11/08/17 08:24 Dose: 20 gm Loratadine (Claritin) 10 mg PO DAILYPRN PRN PRN Reason: Sinus Symptoms Mineral Oil/White Petrolatum (Eucerin Cream) 0 gm TOP BIDPRN PRN PRN Reason: Dry Skin Nitroglycerin (Nitrostat) 0.4 mg SL Q5MIN PRN PRN Reason: Chest Pain Ondansetron HCl (Zofran) 4 mg IVP Q6H PRN PRN Reason: Nausea/Vomiting Ondansetron HCl (Zofran Odt) 4 mg PO Q6H PRN PRN Reason: Nausea/Vomiting Pantoprazole Sodium (Protonix) 40 mg PO BID [facility] Last Admin: 11/08/17 08:25 Dose: 40 mg Phenol (Chloraseptic [place] 180 Ml Bot) 0 ml PO PRN PRN PRN Reason: Sore Throat Phosphorus (Kphos Neutral) 500 mg PO BID-[facility] Last Admin: 11/08/17 08:26 Dose: 500 mg Senna (Senokot) 2 tab PO HSPRN PRN PRN Reason: Constipation Sodium Chloride (Flush - Normal Saline) 10 ml IVF Q12HR [facility] Last Admin: 11/08/17 08:27 Dose: 10 ml Sodium Chloride (Flush - Normal Saline) 10 ml IVF PRN PRN PRN Reason: Saline Flush Spironolactone (Aldactone) [facility] Last Admin: 11/08/17 08:26 Dose: 100 mg Thiamine HCl (Thiamine) 100 mg PO DAILY [facility] Last Admin: 11/08/17 08:25 Dose: 100 mg Throat Lozenges (Cepastat Lozenges) 1 mya PO Q2H PRN PRN Reason: Sore Throat Last Admin: 11/05/17 11:20 Dose: 1 mya
[2017-11-08] MEDS: cefTRIAXone\\ROCEPHIN 2 GM in Sodium Chloride 0.9% 100 ML IVPB SCH (09:52)
--- NOTE | 2017-11-08 10:39 | PRG ---
DATE OF SERVICE: 11/08/2017 SUBJECTIVE: The patient complains of abdominal fullness. He is having too many bowel movements. He had 8 yesterday and 4 already today. OBJECTIVE: VITAL SIGNS: Temperature 98.6, pulse 87, respiratory rate 16, blood pressure 118/74. CHEST: Clear. CARDIOVASCULAR: Regular rate and rhythm. ABDOMEN: Distended and taut. His lower abdomen is bandaged. EXTREMITIES: Show edema. ASSESSMENT: 1. Symptomatic ascites. 2. Cirrhosis. 3. Diarrhea. RECOMMENDATIONS: 1. Decrease lactulose. 2. Stool for C. diff. 3. Paracentesis.
[2017-11-08 17:32] LABS: Vancomycin, Trough 25.8 ug/mL
[2017-11-09 04:34] LABS: INR-International Normal Ratio 2.6; Prothrombin Time 28.5 SEC (12.0-14.7)
[2017-11-09 04:42] LABS: Vancomycin, Trough 21.9 ug/mL
[2017-11-09 05:17] LABS: Anion Gap 11 mmol/L (10-20); BUN (Urea Nitrogen) 27 mg/dL (8.4-25.7); Calc. Creatinine Clearance 51 mL/min (70-130); Calcium 7.6 mg/dL (7.8-10.44); Carbon Dioxide 23 mmol/L (23-31); Chloride 106 mmol/L (98-107); Estimated GFR-MDRD 28; Glucose 97 mg/dL (80-115); Phosphorus 2.6 mg/dL (2.3-4.7); Potassium 3.8 mmol/L (3.5-5.1); Sodium 136 mmol/L (136-145)
[2017-11-09] MEDS ORDERED: Phytonadione 10 MG/ML AMP PO SCH (07:30)
[2017-11-09] MEDS ORDERED: Albumin 25% 25 GM/100 ML BOT IVPB ONE (08:00)
[2017-11-09] MEDS: Multivitamin W/ Minerals 1 TAB PO SCH (08:47)
[2017-11-09] MEDS: Cyanocobalamin (Vitamin B-12) 1,000 MCG TAB PO SCH (08:47)
[2017-11-09] MEDS: K-Phos Neutral 250 MG TAB PO SCH ×2 (08:47→16:49)
[2017-11-09] MEDS: Folic Acid 1 MG TAB PO SCH (08:48)
[2017-11-09] MEDS: cefTRIAXone\\ROCEPHIN 2 GM in Sodium Chloride 0.9% 100 ML IVPB SCH (09:11)
[2017-11-09] MEDS: Albumin 25% 25 GM/100 ML BOT IVPB SCH ×3 (09:11→20:24)
--- NOTE | 2017-11-09 10:33 | CON ---
DATE OF CONSULTATION: 11/09/2017 SERVICE: Renal Medicine. HISTORY OF PRESENT ILLNESS: Mr. Little is a 62-year-old white male, who was admitted due to his unde rlying cirrhosis/ascites. We are being consulted for his acute kidney injury. This patient has been diuresed due to the generalized edema. Renal function was noted to have worsened in the last 24 jimmy rs. He has also a planned paracentesis. His last MELD score was said to be 16. REVIEW OF SYSTEMS: No chest pain or shortness of breath. Positive for abdominal swelling. Positive for leg edema. No nausea, no vomiting. Decreased appetite, decreased energy level, no syncopal epi sode, no productive cough, no fever or chills, no dysuria, no urine frequency, no hematochezia, no me rhonda, no hematemesis. MEDICATIONS: DuoNeb q.6 hours p.r.n., ceftriaxone 2 grams IV daily, vitamin B12 1000 mg p.o. daily, Folvite 1 mg daily, p.r.n. hydralazine, lactulose 10 grams daily, Claritin 10 mg at bedtime p.r.n., P rotonix 40 mg p.o. b.i.d., K-Phos 500 mg p.o. b.i.d., senna 2 tabs at bedtime p.r.n., thiamine 100 mg every day, furosemide on hold. PAST MEDICAL HISTORY: Includes history of cirrhosis; history of chronic hepatitis C; chronic low juan k pain; hypertension; depression; chronic kidney disease, stage 2; thrombocytopenia from cirrhosis; h istory of polysubstance abuse; chronic ascites; pleural effusion. PAST SURGICAL HISTORY: 1. Status post paracentesis. 2. Status post upper GI endoscopy. SOCIAL HISTORY: He lives alone; he lives in [place]. No children. No IV drug abuse. Education, high school. 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 FAMILY HISTORY: No family history of ESRD - please note patient is adopted. ALLERGIES: Currently unknown. TRAUMA: None. IMMUNIZATIONS: Unknown. HOSPITALIZATIONS: Please see past medical history. PHYSICAL EXAMINATION: VITAL SIGNS: Blood pressure is 99/63, heart rate 88, respiratory rate 16, temperature 97.5. GENERAL EXAM: Awake, supine, comfortable, not in distress. SKIN: Adequate turgor. HEENT: Pinkish conjunctivae. Icteric sclerae. NECK: No neck mass, no carotid bruits, no JVD. Please note patient is jaundiced. LUNGS: Clear breath sounds, no wheezing, no crackles. HEART: Normal sinus rhythm. No murmur, no gallops, no rubs. ABDOMEN: Globular, soft, nontender, no masses. Positive for ascites. EXTREMITIES: Positive for edema. NEUROLOGICAL EXAM: Awake and oriented to 3 spheres. Moving all extremities. No tremors, no asterix is, no ataxia. LABORATORY DATA: Laboratories of 11/08/2017, white count 7.1, hemoglobin 8.7, sodium 136, potassium 3.8, chloride 106, carbon dioxide , BUN 27, creatinine 2.32, GFR 28 mL per minute, calcium 7.6, phosphorus 2.6. On 11/08/2017, BUN 18, creatinine 1.07. ASSESSMENT AND PLAN: 1. Acute kidney injury - consider hemodynamically mediated renal dysfunction. We will continue salt -poor albumin 25 grams IV q.6 hours for the next 3 days. There is no indication for any dialytic int ervention. Agree to hold off current Lasix. 2. Chronic ascites - for paracentesis. If renal function further worsens, we could consider starting on normal saline at 100 mL per hour. W e will review a urinalysis with this patient and a urine chemistry. Agree with current management.
--- NOTE | 2017-11-09 10:55 | PDOC.PN ---
- Subjective Encounter Start Date: 11/09/17 Encounter Start Time: 08:55 Patient seen and examined. No new complaints. No overnight events today he has acute kidney failure, tense ascites - Objective Resuscitation Status: Resuscitation Status DNR:Do Not Resuscitate MAR Reviewed: Yes Vital Signs & Weight: Vital Signs (12 hours) Temp Pulse Resp BP Pulse Ox 11/09/17 08:00 97.5 F L 88 16 11/09/17 07:16 97.5 F L 88 16 99/63 11/09/17 05:40 98.5 F 83 20 104/66 91 L 11/08/17 23:51 98.6 F 85 20 119/68 91 L Weight Admit Weight 244 lb 4.8 oz Weight 249 lb 8 oz I&O: 11/08/17 11/09/17 11/10/17 06:59 06:59 06:59 Intake Total 1480 1370 Output Total 100 950 Balance 1380 420 Result Diagrams: 11/08/17 03:42 11/09/17 03:49 Additional Labs: Accuchecks 11/08/17 11/08/17 11/07/17 20:01 11:49 19:43 POC Glucose 141 H 114 H 157 H 11/07/17 16:39 POC Glucose 98 Phys Exam - Physical Examination Constitutional: NAD HEENT: PERRLA, moist MMs icterus+ Neck: no JVD, supple Respiratory: no wheezing, no rales, no rhonchi Cardiovascular: RRR, no significant murmur, no rub tense ascites, abdominal wound with dressing Musculoskeletal: pulses present, edema present Neurological: non-focal, normal sensation no asterexis Lymphatic: no nodes Psychiatric: normal affect Deviation from normal: bruise+ Dx/Plan (1) Acute metabolic encephalopathy Code(s): G93.41 - METABOLIC ENCEPHALOPATHY Status: Acute (2) Sepsis Code(s): A41.9 - SEPSIS, UNSPECIFIED ORGANISM Status: Acute (3) Cellulitis of abdominal wall Code(s): L03.311 - CELLULITIS OF ABDOMINAL WALL Status: Acute Comment: Vancomycin, Zosyn (4) GI bleed Code(s): K92.2 - GASTROINTESTINAL HEMORRHAGE, UNSPECIFIED Status: Acute (5) Anemia due to acute blood loss Code(s): D62 - ACUTE POSTHEMORRHAGIC ANEMIA Status: Acute Comment: now stable (6) Duodenal ulcer Status: Acute (7) Hypokalemia Code(s): E87.6 - HYPOKALEMIA Status: Acute (8) Hypophosphatemia Code(s): E83.39 - OTHER DISORDERS OF PHOSPHORUS METABOLISM Status: Acute (9) Subdural hematoma Code(s): S06.5X9A - TRAUM SUBDR HEM W LOC OF UNSP DURATION, INIT Status: Acute Comment: likely acute on chronic, no surgery per Neurosurgery as appears stable (10) Alcohol abuse Code(s): F10.10 - ALCOHOL ABUSE, UNCOMPLICATED Status: Chronic (11) Coagulopathy Status: Chronic (12) Hepatitis C Code(s): B19.20 - UNSPECIFIED VIRAL HEPATITIS C WITHOUT HEPATIC COMA Status: Chronic (13) Jaundice, hepatocellular Code(s): K76.89 - OTHER SPECIFIED DISEASES OF LIVER Status: Chronic (14) Obesity (BMI 30.0-34.9) Code(s): E66.9 - OBESITY, UNSPECIFIED Status: Chronic (15) Thrombocytopenia Code(s): D69.6 - THROMBOCYTOPENIA, UNSPECIFIED Status: Chronic (16) Lactic acidosis Code(s): E87.2 - ACIDOSIS Status: Resolved (17) Alcoholic cirrhosis of liver with ascites Code(s): K70.31 - ALCOHOLIC CIRRHOSIS OF LIVER WITH ASCITES Status: Chronic (18) Acute kidney failure Status: Acute - Plan cont current plan of care, continue antibiotics * continue rocephin * wound care * paracentesis * give vitamin K one dose * agree with [facility] * consult nephrology for LINNETTE * will Dc lasix and aldactone for now * give albumin * monitor renal function * shelter prognosis is very poor and very high risk for re admission * medication reviewed as below * symptomatic treatment. Review of Systems - Review of Systems ENT: negative: Ear Pain, Ear Discharge, Nose Pain, Nose Discharge, Nose Congestion, Mouth Pain, Mouth Swelling, Throat Pain, Throat Swelling, Other Respiratory: negative: Cough, Dry, Shortness of Breath, Hemoptysis, SOB with Excertion, Pleuritic Pain, Sputum, Wheezing Cardiovascular: negative: chest pain, palpitations, orthopnea, paroxysmal nocturnal dyspnea, edema, light headedness, other Gastrointestinal: negative: Nausea, Vomiting, Abdominal Pain, Diarrhea, Constipation, Melena, Hematochezia, Other Genitourinary: negative: Dysuria, Frequency, Incontinence, Hematuria, Retention , Other Musculoskeletal: negative: Neck Pain, Shoulder Pain, Arm Pain, Back Pain, Hand Pain, Leg Pain, Foot Pain, Other Other: not reliable due to his level of cognitive status - Medications/Allergies Allergies/Adverse Reactions: Allergies Allergy/AdvReac Type Severity Reaction Status Date / Time No Known Drug Allergies Allergy Verified 09/16/17 22:19 Medications: Current Medications Al Hydroxide/Mg Hydroxide (Maalox) 30 ml PO Q6H PRN PRN Reason: Heartburn or Indigestion Albumin Human (Albumin 25%) 25 gm IVPB 0300,0900,1500,2100 [facility] Stop: 11/12/17 03:01 Last Admin: 11/09/17 09:11 Dose: Not Given Albuterol/Ipratropium (Duoneb) 3 ml NEB [id number] PRN PRN Reason: SOB &/or Wheezing Artificial Tears (Tears Naturale) 0 drop EA EYE PRN PRN PRN Reason: Dry Eyes Bisacodyl (Dulcolax) 10 mg PO DAILYPRN PRN PRN Reason: Constipation Calcium Carbonate (Tums) 1,000 mg PO Q4H PRN PRN Reason: Heartburn or Indigestion Cyanocobalamin (Vitamin B-12) 1,000 mcg PO DAILY [facility] Last Admin: 11/09/17 08:47 Dose: 1,000 mcg Folic Acid (Folvite) 1 mg PO DAILY [facility] Last Admin: 11/09/17 08:48 Dose: 1 mg Guaifenesin (Robitussin Sf) 200 mg PO Q4H PRN PRN Reason: Cough Haloperidol Lactate (Haldol) 1 mg SLOW IVP Q4H PRN PRN Reason: Agitation Last Admin: 11/06/17 23:24 Dose: 1 mg Hydralazine HCl (Apresoline) 10 mg SLOW IVP Q4H PRN PRN Reason: Systolic BP > 170 Ceftriaxone Sodium 2 gm/ (Sodium Chloride) 100 mls @ 200 mls/hr IVPB Q24HR [facility] Last Admin: 11/09/17 09:11 Dose: 100 mls Iron/Minerals/Multivitamins (Theragran M) 1 tab PO DAILY [facility] Last Admin: 11/09/17 08:47 Dose: 1 tab Lactulose (Lactulose) 10 gm PO DAILY [facility] Last Admin: 11/09/17 09:12 Dose: 10 gm Loratadine (Claritin) 10 mg PO DAILYPRN PRN PRN Reason: Sinus Symptoms Mineral Oil/White Petrolatum (Eucerin Cream) 0 gm TOP BIDPRN PRN PRN Reason: Dry Skin Nitroglycerin (Nitrostat) 0.4 mg SL Q5MIN PRN PRN Reason: Chest Pain Ondansetron HCl (Zofran) 4 mg IVP Q6H PRN PRN Reason: Nausea/Vomiting Ondansetron HCl (Zofran Odt) 4 mg PO Q6H PRN PRN Reason: Nausea/Vomiting Pantoprazole Sodium (Protonix) 40 mg PO BID [facility] Last Admin: 11/09/17 08:48 Dose: 40 mg Phenol (Chloraseptic [place] 180 Ml Bot) 0 ml PO PRN PRN PRN Reason: Sore Throat Phosphorus (Kphos Neutral) 500 mg PO BID-[facility] Last Admin: 11/09/17 08:47 Dose: 500 mg Phytonadione (Aquamephyton) 5 mg PO NOW [facility] Stop: 11/09/17 12:00 Last Admin: 11/09/17 08:44 Dose: 5 mg Senna (Senokot) 2 tab PO HSPRN PRN PRN Reason: Constipation Sodium Chloride (Flush - Normal Saline) 10 ml IVF Q12HR [facility] Last Admin: 11/09/17 08:48 Dose: 10 ml Sodium Chloride (Flush - Normal Saline) 10 ml IVF PRN PRN PRN Reason: Saline Flush Thiamine HCl (Thiamine) 100 mg PO DAILY [facility] Last Admin: 11/09/17 09:11 Dose: 100 mg Throat Lozenges (Cepastat Lozenges) 1 mya PO Q2H PRN PRN Reason: Sore Throat Last Admin: 11/05/17 11:20 Dose: 1 mya
--- NOTE | 2017-11-09 14:04 | ULT ---
ULTRASOUND GUIDED PARACENTESIS: HISTORY: Symptomatic ascites. COMPARISON: None. FINDINGS: Technically successful ultrasound-guided paracentesis. A total of 6 L of yellow-color ascites was as pirated. There are no immediate postprocedure complications. TECHNIQUE: Consent was obtained to perform an ultrasound-guided paracentesis. The patient's abdomen was evaluat ed. The right lower quadrant was deemed appropriate. The skin was prepped and draped in sterile fas hion. 1% Lidocaine, buffered with sodium bicarbonate, was used for local anesthesia. Ultrasound eliana rohit, a 5 Divehi 7 cm Yueh catheter was advanced to the peritoneal space. A total of 6 L of yellow- colored ascites was aspirated. The patient tolerated the procedure well. NO immediate or postproced ure complication. IMPRESSION: Successful ultrasound-guided paracentesis. POS: PREETI
--- NOTE | 2017-11-09 17:03 | PRG ---
DATE OF SERVICE: 11/09/2017 SUBJECTIVE: He is presently without new complaints. OBJECTIVE: VITAL SIGNS: Temperature 97.5, pulse 88, respiratory rate 16, and blood pressure 99/63. CHEST: Clear. CARDIOVASCULAR: Regular rate and rhythm. ABDOMEN: Protuberant, taut, nontender. His lower abdomen is bandaged. EXTREMITIES: Show 4+ edema bilaterally. LABORATORY DATA: Shows hemoglobin of 8.7, hematocrit 28.8. Chemistry show BUN 27, creatinine 2.32. Urine nitrite ASSESSMENT: 1. Acute kidney injury. 2. Chronic ascites for paracentesis. 3. Alcoholic cirrhosis. 4. Duodenal ulcers. 5. Subdural hematoma. RECOMMENDATIONS: 1. Paracentesis today. 2. Agree with albumin. 3. Continue to monitor renal function. 4. May need to hold diuretics depending on status of renal function.
[2017-11-09 21:31] LABS: Platelet Count 107 thou/uL (130-400)
[2017-11-09 21:36] LABS: INR-International Normal Ratio 2.7; Prothrombin Time 29.7 SEC (12.0-14.7)
[2017-11-09 21:51] LABS: Anion Gap 14 mmol/L (10-20); BUN (Urea Nitrogen) 37 mg/dL (8.4-25.7); Calc. Creatinine Clearance 39 mL/min (70-130); Calcium 7.8 mg/dL (7.8-10.44); Carbon Dioxide 20 mmol/L (23-31); Chloride 107 mmol/L (98-107); Estimated GFR-MDRD 21; Glucose 95 mg/dL (80-115); Potassium 4.1 mmol/L (3.5-5.1); Sodium 137 mmol/L (136-145)
[2017-11-09] MEDS ORDERED: Pantoprazole 80 MG in Sodium Chloride 0.9% 100 ML IVP SCH (22:30)
[2017-11-10] MEDS: Albumin 25% 25 GM/100 ML BOT IVPB SCH ×2 (03:09→13:00)
[2017-11-10 04:05] LABS: Bilirubin Large (Negative); Blood, Urine Large (Negative); Clarity TURBID (Clear); Glucose, Urine (Dipstick) Negative (Negative); Leukocyte Small (Negative); Nitrite Positive (Negative); Protein, Urine (Dipstick) Negative (Neg-Trace); Specific Gravity, Urine 1.023 (1.002-1.036); Urobilinogen 0.2 mg/dL (0.2-1.0)
[2017-11-10 04:07] LABS: Bacteria/HPF None Seen HPF (None Seen); RBC/HPF 21-50 HPF (0-3); Squamous Epithelial 0-3 HPF (0-3); WBC/HPF 21-50 HPF (0-3)
[2017-11-10 04:08] LABS: Hyaline Casts/LPF 0-3 HYALINE CAST LPF (0-3 Hyaline); Pathc Cast-AUWi Flag 10.03 (0-2.49)
[2017-11-10 04:09] LABS: Other Casts/LPF None Seen LPF (0-3 Hyaline)
[2017-11-10 04:31] LABS: Creatinine, Urine 281.54 mg/dL (63-166); Sodium, Urine Less than 20 mmol/L (Not Available)
[2017-11-10 05:24] LABS: INR-International Normal Ratio 2.9; Prothrombin Time 31.6 SEC (12.0-14.7)
[2017-11-10 05:27] LABS: #Eosinphils 0.1 thou/uL (0.0-0.7); #Lymphocytes 1.6 thou/uL (1.20-3.40); #Monocytes 1.1 thou/uL (0.11-0.59); #Neutrophils 7.4 thou/uL (1.40-6.50); %Basophils 0.1 % (0.0-1.0); %Eosinophils 0.7 % (0.0-10.0); %Lymphocytes 16.1 % (21.0-51.0); %Monocytes 10.5 % (0.0-10.0); %Neutrophils 72.5 % (42.0-75.0); Hemoglobin 6.3 g/dL (14.0-18.0); Mean Corpuscular HGB CONC 31.7 g/dL (32.0-36.0); Mean Corpuscular Volume 94.5 fl (80.0-94.0); Platelet Count 109 thou/uL (130-400); Red Blood Cell (RBC) Count 2.11 mill/uL (4.70-6.10); White Blood Cell (WBC) Count 10.1 thou/uL (4.8-10.8)
[2017-11-10 05:38] LABS: ALT (SGPT) 28 U/L (8-55); AST (SGOT) 61 U/L (5-34); Albumin 2.1 g/dL (3.4-4.8); Alkaline Phosphatase 47 U/L (40-150); Anion Gap 16 mmol/L (10-20); BUN (Urea Nitrogen) 40 mg/dL (8.4-25.7); Bilirubin, Total 15.4 mg/dL (0.2-1.2); Calc. Creatinine Clearance 34 mL/min (70-130); Calcium 7.5 mg/dL (7.8-10.44); Carbon Dioxide 18 mmol/L (23-31); Chloride 106 mmol/L (98-107); Estimated GFR-MDRD 17; Globulin 2.7 g/dL (2.4-3.5); Glucose 124 mg/dL (80-115); Magnesium 1.8 mg/dL (1.6-2.6); Phosphorus 3.3 mg/dL (2.3-4.7); Protein, Total 4.8 g/dL (5.8-8.1); Sodium 136 mmol/L (136-145)
--- NOTE | 2017-11-10 10:49 | PDOC.PN ---
- Subjective Encounter Start Date: 11/10/17 Encounter Start Time: 09:00 pt has john, hypotensive, creatinine is rising, he is alert enough to make his own decision i spoke with him about all test result and prognosis bedside he was given prbc last night he is hypotensive and has black stool pt does not want aggressive intervention he states he wants comfort care we cancelled transfer to CCU we called hospice evaluation I spoke with dr forbes about pt's decision and he agreed - Objective Resuscitation Status: Resuscitation Status DNR:Do Not Resuscitate MAR Reviewed: Yes Vital Signs & Weight: Vital Signs (12 hours) Temp Pulse Pulse Resp BP BP Pulse Ox 11/10/17 10:20 98.9 F 80 16 96/61 92 L 11/10/17 07:22 99.2 F 81 20 11/10/17 05:55 99.2 F 81 20 99/60 90 L 11/10/17 01:36 98.9 F 83 20 97/60 92 L 11/10/17 00:00 98.8 F 84 16 98/59 L 91 L 11/09/17 23:14 98.9 F 83 20 103/64 Weight Admit Weight 244 lb 4.8 oz Weight 249 lb 8 oz I&O: 11/09/17 11/10/17 11/11/17 06:59 06:59 06:59 Intake Total 1370 1680 350 Output Total 950 250 Balance 420 1430 350 Result Diagrams: 11/10/17 04:58 11/10/17 04:58 Phys Exam - Physical Examination Constitutional: NAD HEENT: PERRLA, moist MMs icterus++ Neck: no nodes, no JVD, supple Respiratory: no wheezing, no rales, no rhonchi Cardiovascular: RRR, no significant murmur tense ascites, wound with dressing Musculoskeletal: pulses present, edema present Neurological: non-focal, normal sensation no asterexis Lymphatic: no nodes Psychiatric: normal affect Skin: normal turgor Deviation from normal: bruise Dx/Plan (1) Acute metabolic encephalopathy Code(s): G93.41 - METABOLIC ENCEPHALOPATHY Status: Acute (2) Sepsis Code(s): A41.9 - SEPSIS, UNSPECIFIED ORGANISM Status: Acute (3) Cellulitis of abdominal wall Code(s): L03.311 - CELLULITIS OF ABDOMINAL WALL Status: Acute Comment: Vancomycin, Zosyn (4) GI bleed Code(s): K92.2 - GASTROINTESTINAL HEMORRHAGE, UNSPECIFIED Status: Acute (5) Anemia due to acute blood loss Code(s): D62 - ACUTE POSTHEMORRHAGIC ANEMIA Status: Acute Comment: now stable (6) Duodenal ulcer Status: Acute (7) Hypokalemia Code(s): E87.6 - HYPOKALEMIA Status: Acute (8) Hypophosphatemia Code(s): E83.39 - OTHER DISORDERS OF PHOSPHORUS METABOLISM Status: Acute (9) Subdural hematoma Code(s): S06.5X9A - TRAUM SUBDR HEM W LOC OF UNSP DURATION, INIT Status: Acute Comment: likely acute on chronic, no surgery per Neurosurgery as appears stable (10) Alcohol abuse Code(s): F10.10 - ALCOHOL ABUSE, UNCOMPLICATED Status: Chronic (11) Coagulopathy Status: Chronic (12) Hepatitis C Code(s): B19.20 - UNSPECIFIED VIRAL HEPATITIS C WITHOUT HEPATIC COMA Status: Chronic (13) Jaundice, hepatocellular Code(s): K76.89 - OTHER SPECIFIED DISEASES OF LIVER Status: Chronic (14) Obesity (BMI 30.0-34.9) Code(s): E66.9 - OBESITY, UNSPECIFIED Status: Chronic (15) Thrombocytopenia Code(s): D69.6 - THROMBOCYTOPENIA, UNSPECIFIED Status: Chronic (16) Lactic acidosis Code(s): E87.2 - ACIDOSIS Status: Resolved (17) Alcoholic cirrhosis of liver with ascites Code(s): K70.31 - ALCOHOLIC CIRRHOSIS OF LIVER WITH ASCITES Status: Chronic (18) Acute kidney failure Status: Acute (19) Hepatorenal syndrome Code(s): K76.7 - HEPATORENAL SYNDROME Status: Acute - 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 Review of Systems - Review of Systems Constitutional: weakness, malaise. negative: fever, chills, sweats, other Eyes: negative: Pain, Vision Change, Conjunctivae Inflammation, Eyelid Inflammation, Redness, Other ENT: negative: Ear Pain, Ear Discharge, Nose Pain, Nose Discharge, Nose Congestion, Mouth Pain, Mouth Swelling, Throat Pain, Throat Swelling, Other Respiratory: negative: Cough, Dry, Shortness of Breath, Hemoptysis, SOB with Excertion, Pleuritic Pain, Sputum, Wheezing Cardiovascular: negative: chest pain, palpitations, orthopnea, paroxysmal nocturnal dyspnea, edema, light headedness, other Gastrointestinal: Melena. negative: Nausea, Vomiting, Abdominal Pain, Diarrhea , Constipation, Hematochezia, Other Genitourinary: negative: Dysuria, Frequency, Incontinence, Hematuria, Retention , Other Musculoskeletal: negative: Neck Pain, Shoulder Pain, Arm Pain, Back Pain, Hand Pain, Leg Pain, Foot Pain, Other Skin: negative: Rash, Lesions, [place], Bruising, Other - Medications/Allergies Allergies/Adverse Reactions: Allergies Allergy/AdvReac Type Severity Reaction Status Date / Time No Known Drug Allergies Allergy Verified 09/16/17 22:19 Medications: Current Medications Al Hydroxide/Mg Hydroxide (Maalox) 30 ml PO Q6H PRN PRN Reason: Heartburn or Indigestion Albumin Human (Albumin 25%) 25 gm IVPB 0300,0900,1500,2100 [facility] Stop: 11/12/17 03:01 Last Admin: 11/10/17 03:09 Dose: 25 gm Albuterol/Ipratropium (Duoneb) 3 ml NEB [id number] PRN PRN Reason: SOB &/or Wheezing Artificial Tears (Tears Naturale) 0 drop EA EYE PRN PRN PRN Reason: Dry Eyes Bisacodyl (Dulcolax) 10 mg PO DAILYPRN PRN PRN Reason: Constipation Calcium Carbonate (Tums) 1,000 mg PO Q4H PRN PRN Reason: Heartburn or Indigestion Cyanocobalamin (Vitamin B-12) 1,000 mcg PO DAILY [facility] Last Admin: 11/09/17 08:47 Dose: 1,000 mcg Folic Acid (Folvite) 1 mg PO DAILY [facility] Last Admin: 11/09/17 08:48 Dose: 1 mg Guaifenesin (Robitussin Sf) 200 mg PO Q4H PRN PRN Reason: Cough Haloperidol Lactate (Haldol) 1 mg SLOW IVP Q4H PRN PRN Reason: Agitation Last Admin: 11/06/17 23:24 Dose: 1 mg Hydralazine HCl (Apresoline) 10 mg SLOW IVP Q4H PRN PRN Reason: Systolic BP > 170 Ceftriaxone Sodium 2 gm/ (Sodium Chloride) 100 mls @ 200 mls/hr IVPB Q24HR [facility] Last Admin: 11/09/17 09:11 Dose: 100 mls Pantoprazole Sodium 80 mg/ (Sodium Chloride) 100 mls @ 10 mls/hr IVP INF [facility] Last Admin: 11/09/17 22:46 Dose: 100 mls Iron/Minerals/Multivitamins (Theragran M) 1 tab PO DAILY [facility] Last Admin: 11/09/17 08:47 Dose: 1 tab Lactulose (Lactulose) 10 gm PO DAILY [facility] Last Admin: 11/09/17 09:12 Dose: 10 gm Loratadine (Claritin) 10 mg PO DAILYPRN PRN PRN Reason: Sinus Symptoms Mineral Oil/White Petrolatum (Eucerin Cream) 0 gm TOP BIDPRN PRN PRN Reason: Dry Skin Nitroglycerin (Nitrostat) 0.4 mg SL Q5MIN PRN PRN Reason: Chest Pain Ondansetron HCl (Zofran) 4 mg IVP Q6H PRN PRN Reason: Nausea/Vomiting Ondansetron HCl (Zofran Odt) 4 mg PO Q6H PRN PRN Reason: Nausea/Vomiting Phenol (Chloraseptic Jbphh 180 Ml Bot) 0 ml PO PRN PRN PRN Reason: Sore Throat Phosphorus (Kphos Neutral) 500 mg PO BID-WM [facility] Last Admin: 11/09/17 16:49 Dose: 500 mg Senna (Senokot) 2 tab PO HSPRN PRN PRN Reason: Constipation Sodium Chloride (Flush - Normal Saline) 10 ml IVF Q12HR [facility] Last Admin: 11/09/17 20:30 Dose: 10 ml Sodium Chloride (Flush - Normal Saline) 10 ml IVF PRN PRN PRN Reason: Saline Flush Thiamine HCl (Thiamine) 100 mg PO DAILY [facility] Last Admin: 11/09/17 09:11 Dose: 100 mg Throat Lozenges (Cepastat Lozenges) 1 mya PO Q2H PRN PRN Reason: Sore Throat Last Admin: 11/05/17 11:20 Dose: 1 mya
[2017-11-10] MEDS ORDERED: Morphine 4 MG/ML VIAL IV PRN (11:24)
[2017-11-10 12:27] VITALS: BP 77/45; TEMP 98.2
[2017-11-10] MEDS: Multivitamin W/ Minerals 1 TAB PO SCH (13:00)
[2017-11-10] MEDS: Folic Acid 1 MG TAB PO SCH (13:00)
[2017-11-10] MEDS: Cyanocobalamin (Vitamin B-12) 1,000 MCG TAB PO SCH (13:00)
[2017-11-10] MEDS: K-Phos Neutral 250 MG TAB PO SCH (13:00)
[2017-11-10] MEDS: cefTRIAXone\\ROCEPHIN 2 GM in Sodium Chloride 0.9% 100 ML IVPB SCH (13:00)
[2017-11-10 14:18] LABS: Hemoglobin 5.3 g/dL (14.0-18.0)
--- NOTE | 2017-11-10 17:25 | PRG ---
DATE OF SERVICE: 11/10/2017 SUBJECTIVE: Mr. Little was worse last evening. He dropped his hemoglobin last evening to 7, which w as checked when he had a bloody stool. His platelet count is 107 despite getting FFP earlier that da y. His INR was 2.7. He was transfused a unit of blood and placed back on a Protonix drip for known duodenal ulcers. Today, he has had dark bloody stool again this morning and his hemoglobin once agai n dropped to 6.3, that was despite receiving a unit of blood after it was 7. He was given further bl ood. I was contacted and recommended transfer to the ICU, FFP and preparation for possible intubatio n for repeat endoscopy; however, hospitalist called back in light of his poor prognosis, hepatorenal failure with worsening renal function, decision has been made to proceed with palliative care. Patie nt is obtunded and cannot really hold a conversation with regard to this at this point in time. MEDICATIONS: Albumin, Rocephin, vitamin B12, Folvite, Theragran, lactulose, Zofran, and pantoprazole drip. PHYSICAL EXAMINATION: GENERAL: The patient is obtunded, moans somewhat. VITAL SIGNS: Temperature 98, pulse 56, blood pressure 77/45, respirations 18. LABORATORY DATA: BUN and creatinine are 40 and 3.54 and is 3.06 and 2.32 in last 2 days. ASSESSMENT: 1. Hepatorenal failure. 2. Alcoholic cirrhosis, decompensated with encephalopathy, coagulopathy which is worsening and ascit es. 3. Gastrointestinal bleeding with known ulcer, continues to have slow oozing. PLAN: As per the Hospitalist team move the direction of palliative care. He is not a candidate for transplant and this is reasonable in light of his worsening hepatorenal failure and ongoing gastroint estinal oozing and obtunded state.
--- NOTE | 2017-11-11 07:04 | DS ---
PRIMARY CARE PHYSICIAN: [facility] call admission. DATE OF ADMISSION: 11/03/2017 DATE AND TIME OF : 11/10/2017 at 1505. PRIMARY CAUSE OF : 1. Hepatorenal syndrome. 2. Sepsis with abdominal wall cellulitis. 3. Acute metabolic encephalopathy. 4. Acute kidney failure. 5. Anemia due to acute blood loss. 6. Gastrointestinal bleed. 7. Subdural hematoma. CONTRIBUTING DIAGNOSES: Alcoholic cirrhosis of liver with massive ascites, chronic hepatitis C. SHORT HOSPITAL SUMMARY: A 62-year-old male who was admitted in hospital on 11/03/[address] Suresh . Please see her H&P for further detail. The patient was admitted for massive upper gastrointestina l bleed. On admission he was having dark tarry stool. His hemoglobin was 10.3. He was given resusc itation with fluid and Protonix drip. The patient was taken for upper endoscopy by Dr. Kraft and dion bustillo with a large duodenal ulcer. The patient also had a mechanical fall and he had thrombocytopenia and coagulopathy from chronic live r disease and CT brain showed subdural hematoma. Neurosurgeon was consulted and they recommended con servative therapy. Regarding his coagulopathy, thrombocytopenia and blood loss, the patient was given 2 units of blood, FFP and platelets. The patient had massive ascites, required paracentesis while in hospital. The patient was also treat ed with diuretic therapy and he developed acute kidney failure and renal function continued to get wo rse and subsequently he developed another massive bleeding and his hemoglobin dropped to 5.3. He was hypotensive. The patient decided by himself a DNR. He does not want to be transferred to CCU or aggressive interv ention. We did out of hospital DNR paperwork. Hospice was consulted. The patient was accepted for inpatient hospice care. The patient gradually declined and at 1505.
== END 2017-11-10 15:05 | disposition expired | DRG 871 ==
LOC: ERS 15:20 → SDC 20:04 → IMCU/EMU 21:04 → T4-A 11-05 13:01
PROVIDERS: ADMIT Internal Medicine; ATTEND Internal Medicine
PROC: 0DJ08ZZ Inspection of Upper Intestinal Tract, Via Natural or Artificial Opening Endoscopic (ICD-10-PCS; 2017-11-03)
PROC: 30233R1 Transfusion of Nonautologous Platelets into Peripheral Vein, Percutaneous Approach (ICD-10-PCS; 2017-11-03)
PROC: 30233K1 Transfusion of Nonautologous Frozen Plasma into Peripheral Vein, Percutaneous Approach (ICD-10-PCS; 2017-11-03)
PROC: 0W9G3ZZ Drainage of Peritoneal Cavity, Percutaneous Approach (ICD-10-PCS; principal; 2017-11-09)
PROC: 30233N1 Transfusion of Nonautologous Red Blood Cells into Peripheral Vein, Percutaneous Approach (ICD-10-PCS; 2017-11-09)
DX: A41.9 Sepsis, unspecified organism (principal); S06.5X9A Traumatic subdural hemorrhage with loss of consciousness of unspecified duration, initial encounter; K76.7 Hepatorenal syndrome; G93.41 Metabolic encephalopathy; K26.0 Acute duodenal ulcer with hemorrhage; L03.311 Cellulitis of abdominal wall; N17.9 Acute kidney failure, unspecified; D62 Acute posthemorrhagic anemia; D68.4 Acquired coagulation factor deficiency; E87.2 Acidosis; M62.82 Rhabdomyolysis; D61.818 Other pancytopenia; R65.20 Severe sepsis without septic shock; B96.89 Other specified bacterial agents as the cause of diseases classified elsewhere; K70.31 Alcoholic cirrhosis of liver with ascites; B18.2 Chronic viral hepatitis C; D69.6 Thrombocytopenia, unspecified; I95.9 Hypotension, unspecified; G89.29 Other chronic pain; M54.9 Dorsalgia, unspecified; F10.10 Alcohol abuse, uncomplicated; F32.9 Major depressive disorder, single episode, unspecified; F41.9 Anxiety disorder, unspecified; I12.9 Hypertensive chronic kidney disease with stage 1 through stage 4 chronic kidney disease, or unspecified chronic kidney disease; N18.2 Chronic kidney disease, stage 2 (mild); F19.11 Other psychoactive substance abuse, in remission; D64.9 Anemia, unspecified; E87.6 Hypokalemia; E83.39 Other disorders of phosphorus metabolism; E66.9 Obesity, unspecified; Z68.30 Body mass index [BMI] 30.0-30.9, adult; K70.11 Alcoholic hepatitis with ascites; R19.7 Diarrhea, unspecified; F17.210 Nicotine dependence, cigarettes, uncomplicated; Z66 Do not resuscitate; W19.XXXA Unspecified fall, initial encounter; Y92.009 Unspecified place in unspecified non-institutional (private) residence as the place of occurrence of the external cause; S31.109A Unspecified open wound of abdominal wall, unspecified quadrant without penetration into peritoneal cavity, initial encounter; S71.002A Unspecified open wound, left hip, initial encounter; X58.XXXA Exposure to other specified factors, initial encounter
CPT/HCPCS: 36415; 36416; 36430; 49083; 70450; 76700; 80048; 80053; 80202; 80307; 81001; 81003; 81015; 82105; 82140; 82553; 82570; 83605; 83690; 83735; 84100; 84300; 84484; 85014; 85018; 85025; 85049; 85610; 85730; 86850; 86900; 86901; 87040; 87070; 87149; 87205; 87324; 87449; 93005; 94660; 96361; 96365; 96367; 96368; 96375; 96376; A4216; C9113; G8978-GP-CL; G8979-GP-CJ; G8987-GO-CJ; G8988-GO-CI; J0696; J1630; J1940; J2270; J2354; J2543; J3370; J3430; J3475; J7050; J7620; P9016; P9035; P9047; P9059

== ENCOUNTER 2017-11-10 15:11 | Inpatient (IN) | payer OTHER ==
[2017-11-10 15:40] VITALS: BMI 28.3
[2017-11-10] MEDS ORDERED: Hyoscyamine Sulfate SL 0.125 mg Tablet SL PRN (16:07)
[2017-11-10] MEDS ORDERED: Acetaminophen 325 MG TAB PO PRN (16:07)
[2017-11-10] MEDS ORDERED: Ondansetron ODT 4 MG TAB PO PRN (16:07)
[2017-11-10] MEDS ORDERED: chlorproMAZINE HCl 25 MG in Sodium Chloride 0.9% 50 ML IVPB PRN (16:07)
[2017-11-10] MEDS ORDERED: Haloperidol Lactate 5 MG/ML VIAL SLOW IVP PRN (16:07)
[2017-11-10] MEDS ORDERED: Lorazepam 1 MG TAB PO PRN ×2 (16:07)
[2017-11-10] MEDS ORDERED: diphenhydrAMINE 25 MG CAP PO PRN (16:07)
[2017-11-10] MEDS ORDERED: Morphine 10 MG/0.5 ML ORAL SYRINGE SL PRN (16:07)
[2017-11-10] MEDS ORDERED: Acetaminophen 650 MG Suppository PR PRN (16:07)
[2017-11-10] MEDS ORDERED: Ondansetron HCl/PF 4 MG/2 ML Vial IVP PRN (16:07)
[2017-11-10] MEDS ORDERED: Scopolamine 1.5 mg/72 hour Patch TOP PRN ×2 (16:07)
[2017-11-10] MEDS ORDERED: chlorproMAZINE HCl 50 MG/2 ML AMP IM PRN ×2 (16:07)
[2017-11-10] MEDS ORDERED: ALPRAZolam 0.25 MG TAB PO PRN (16:07)
[2017-11-10] MEDS ORDERED: Senokot 8.6 MG TAB PO PRN (16:07)
[2017-11-10] MEDS ORDERED: Lorazepam 2 MG/ML VIAL SLOW IVP PRN ×2 (16:07)
[2017-11-10] MEDS ORDERED: Milk Of Magnesia 30 ML UDCUP PO PRN (16:07)
[2017-11-10] MEDS ORDERED: Promethazine HCl 25 MG SUPP PR PRN (16:07)
[2017-11-10] MEDS ORDERED: diphenhydrAMINE 50 MG/ML VIAL IVP PRN (16:07)
[2017-11-10] MEDS ORDERED: Zolpidem Tartrate 5 MG TAB PO PRN (16:07)
[2017-11-10] MEDS ORDERED: Loperamide HCl 2 MG CAP PO PRN (16:07)
[2017-11-10] MEDS: Morphine IR Tab 15 MG TAB PO PRN ×2 (16:50→21:02)
[2017-11-10 20:26] VITALS: BP 63/44; TEMP 97.7
== END 2017-11-10 22:40 | disposition expired | DRG 871 ==
LOC: T4-A 15:11
PROVIDERS: ADMIT Internal Medicine; ATTEND Internal Medicine
DX: A41.9 Sepsis, unspecified organism (principal); S06.5X9A Traumatic subdural hemorrhage with loss of consciousness of unspecified duration, initial encounter; K76.7 Hepatorenal syndrome; G93.41 Metabolic encephalopathy; L03.311 Cellulitis of abdominal wall; N17.9 Acute kidney failure, unspecified; D62 Acute posthemorrhagic anemia; K92.2 Gastrointestinal hemorrhage, unspecified; D68.4 Acquired coagulation factor deficiency; M62.82 Rhabdomyolysis; D61.818 Other pancytopenia; B18.2 Chronic viral hepatitis C; K70.31 Alcoholic cirrhosis of liver with ascites; F17.210 Nicotine dependence, cigarettes, uncomplicated; Z66 Do not resuscitate; G89.29 Other chronic pain; M54.5 Low back pain; F32.9 Major depressive disorder, single episode, unspecified; F41.9 Anxiety disorder, unspecified; N18.2 Chronic kidney disease, stage 2 (mild); I12.9 Hypertensive chronic kidney disease with stage 1 through stage 4 chronic kidney disease, or unspecified chronic kidney disease; D69.59 Other secondary thrombocytopenia; Y90.0 Blood alcohol level of less than 20 mg/100 ml; F10.10 Alcohol abuse, uncomplicated; W10.8XXA Fall (on) (from) other stairs and steps, initial encounter; Y92.098 Other place in other non-institutional residence as the place of occurrence of the external cause
CPT/HCPCS: 36430